=== PATIENT | male | born 1945 | race Caucasian/White ===

== ENCOUNTER 2019-01-16 16:37 | Emergency (ER) | payer MEDICARE, OTHER ==
--- NOTE | 2019-01-16 16:52 | ED Physician Documentation ---
PD HPI LOWER EXT INJURY - Stated complaint Stated Complaint: R LEG PX - Chief complaint Chief Complaint: Trauma Ext - History obtained from History obtained from: Patient - History of Present Illness PD HPI LOW EXT INJURY LOCATION: Right (He is a month out from the back surgery. He has had 1 week of right calf pain and swelling without chest pain or trouble breathing. No history of DVT.) Review of Systems Constitutional: reports: Reviewed and negative Cardiac: reports: Pedal edema, Calf pain. denies: Chest pain / pressure, Palpitations Respiratory: denies: Dyspnea, Cough GI: denies: Abdominal Pain PD PAST MEDICAL HISTORY - Past Surgical History Past Surgical History: Yes Ortho: Spine surgery - Allergies Allergies/Adverse Reactions: Allergies Allergy/AdvReac Type Severity Reaction Status Date / Time Opioids - Morphine Analogues Allergy Itching Verified 01/16/19 16:42 Sulfa (Sulfonamide Allergy Unknown Verified 01/16/19 16:42 Antibiotics) - Social History Smoking Status: Current every day smoker PD ED PE NORMAL - Vitals Vital signs reviewed: Yes - General General: Alert and oriented X 3, No acute distress - Extremities Extremities: Other (Right calf is tender without discoloration. Mild asymmetric pitting edema. No tenderness above the knee. Positive Homans sign.) - Psych Psych: Normal mood, Normal affect Results - Vitals Vitals: Vital Signs - 24 hr 01/16/19 01/16/19 01/16/19 16:40 16:41 17:57 Heart Rate 89 89 88 Respiratory 18 18 18 Rate Blood Pressure 172/60 H 172/60 H 168/62 H O2 Saturation 97 97 98 Oxygen O2 Source Room air - Rads (name of study) RLE DVT sono Radiology: Prelim report reviewed (neg for DVT) Departure - Departure Disposition: 01 Home, Self Care Clinical Impression: Right leg swelling Condition: Good Record reviewed to determine appropriate education?: Yes Instructions: ED Edema Legs Bilateral Comments: Eat a low-salt diet, keep the your legs elevated but is okay to walk and you should. Follow-up with your doctor in a week. Your blood pressure was elevated today on check into the emergency department. This does not mean that you have hypertension, it is a common phenomenon to come to the emergency department and have elevated blood pressure. I recommend that you see your primary care physician within the week to have it rechecked when you are feeling better. Discharge Date/Time: 01/16/19 17:57
[2019-01-16 17:59] VITALS: BP 168/62
--- NOTE | 2019-01-16 18:26 | Ultrasound Report ---
Reason: RLE swelling Procedure Date: 01/16/2019 Accession Number: [id number] / [id number] Procedure: US - Duplex Ext Veins Right CPT Code: FULL RESULT: EXAM: RIGHT LOWER EXTREMITY VENOUS ULTRASOUND EXAM DATE: 01/16/2019 05:16 PM. CLINICAL HISTORY: Right lower extremity swelling. COMPARISON: None. TECHNIQUE: Real-time sonographic vascular imaging was performed by the graphics editor through the lower extremity utilizing both color-flow and Doppler spectral analysis. Multiple food service representative static images were saved for review. FINDINGS: Common Femoral Vein (CFV): Normal. CFV-GSV Junction: Normal. Profunda Femoral Vein (PFV): Normal. Femoral Vein (FV) Prox: Normal. Femoral Vein (FV) Mid: Normal. Femoral Vein (FV) Dist: Normal. Popliteal Vein: Normal. Posterior Tibial Veins: Normal. Peroneal Veins: Normal. IMPRESSION: No evidence for deep venous thrombosis. RADIA
== END 2019-01-16 17:57 | disposition home or self-care (01) ==
LOC: ED 16:37
DX: M79.661 Pain in right lower leg (principal); R60.0 Localized edema; R03.0 Elevated blood-pressure reading, without diagnosis of hypertension; F17.200 Nicotine dependence, unspecified, uncomplicated
CPT/HCPCS: 99283

== ENCOUNTER 2020-05-15 04:30 | Outpatient (CLI) | payer MEDICARE, OTHER | END 2020-05-15 04:31 | disposition critical access hospital (66) | LOC: EMS 04:30 | PROVIDERS: ATTEND Surgery | DX: R06.02 Shortness of breath (principal); R60.0 Localized edema | CPT/HCPCS: A0425; A0427 ==

== ENCOUNTER 2020-05-15 04:45 | Inpatient (IN) | payer MEDICARE, OTHER ==
--- NOTE | 2020-05-15 04:47 | ED Physician Documentation ---
PD HPI DYSPNEA - Stated complaint Stated Complaint: SOA - History obtained from History obtained from: Patient, EMS - History of Present Illness Timing - onset: How many days ago (at least 5 days of steadily progressive dyspnea, wheezing, and work of breathing. Denies cough but states has had sinus/nasal drainage. No fever. Has had bilateral lower leg edema the past couple of weeks.) Timing - onset during: Rest (now dyspnea even at rest the past couple days, states has spent nights standing at counter, as unable to breath with lying or reclined.), Light activity (initially with activity and lying down) Timing - duration: Days (5) Timing - details: Gradual onset, Still present Inciting event(s): No: Out of meds Worsened by: Exertion, Laying flat Associated symptoms: Wheezing, Chest pain / discomfort (tightness), Bilateral edema. No: Fever, Cough Similar symptoms before: No diagnosis (has Dx of emphysema but not had dyspnea like this previously. Has Albuterol MDI at home to use PRN. Using regularly the past 4-5 days with minimal improvement. Has noted bilateral leg edema as well.) Recently seen: Not recently seen Review of Systems Constitutional: denies: Fever, Chills Nose: reports: Congestion, Sinus pressure / pain (states some thicker sinus/nasal discharge just the past couple of days.). denies: Rhinorrhea / runny nose Throat: denies: Sore throat Cardiac: reports: Chest pain / pressure, Pedal edema. denies: Palpitations, Calf pain Respiratory: reports: Dyspnea, Wheezing (progressively worse - usually MDI just PRN for meds, but has been using it regularly the past 5 days with brief improvement.). denies: Cough GI: denies: Abdominal Pain, Nausea, Vomiting, Diarrhea, Bloody / black stool (he denies dark or bloody stools nor diarrhea) : denies: Dysuria Musculoskeletal: reports: Extremity swelling. denies: Neck pain, Back pain Neurologic: reports: Generalized weakness. denies: Focal weakness, Numbness, Near syncope PD PAST MEDICAL HISTORY - Past Medical History Cardiovascular: Hypertension Respiratory: COPD Endocrine/Autoimmune: Type 2 diabetes GI: GERD - Past Surgical History Past Surgical History: Yes Ortho: Spine surgery - Allergies Allergies/Adverse Reactions: Allergies Allergy/AdvReac Type Severity Reaction Status Date / Time Opioids - Morphine Analogues Allergy Itching Verified 01/16/19 16:42 Sulfa (Sulfonamide Allergy Unknown Verified 01/16/19 16:42 Antibiotics) - Social History Does the pt smoke?: Yes Smoking Status: Current every day smoker Does the pt drink ETOH?: No Does the pt have substance abuse?: No - Immunizations Immunizations are current?: Yes - POLST Patient has POLST: No PD ED PE NORMAL - Vitals Vital signs reviewed: Yes - General General: Alert and oriented X 3, Well developed/nourished, Other (.) - HEENT HEENT: Moist mucous membranes, Pharynx benign - Neck Neck: Supple, no meningeal sign, No adenopathy - Cardiac Cardiac: No: RRR (slightly irregular and tachy about 115-120 but does not appear fib. Looks sinus tach with PACs. ) - Respiratory Respiratory: No: Clear bilaterally (diffuse exp wheezing. Maybe faint crackles at bases. No coarse sounds. ) - Abdomen Abdomen: Soft, Non tender - Male Male : Deferred - Rectal Rectal: Deferred - Derm Derm: Warm and dry. No: Normal color (mild pale) - Extremities Extremities: No deformity, No calf tenderness / cord, Other (2+ edema in both ankles and lower lower legs. ) - Neuro Neuro: Alert and oriented X 3, No motor deficit, Normal speech Results - Vitals Vitals: Vital Signs - 24 hr 05/15/20 05/15/20 05/15/20 04:50 05:03 05:19 Temperature 36.9 C Heart Rate 116 H 104 H 104 H Respiratory 37 H 24 32 H Rate Blood Pressure 151/83 H O2 Saturation 96 05/15/20 05/15/20 05/15/20 05:56 06:00 06:25 Temperature 36.9 C 36.9 C Heart Rate 109 H 104 H 101 H Respiratory 30 H 34 H 32 H Rate Blood Pressure 124/72 98/74 O2 Saturation 100 97 Oxygen O2 Source Nasal cannula - EKG (time done) 04:54 Rate: Rate (enter#) (117) Rhythm: Sinus tachycardia (I believe it looks like sinus tachycardia with PACs. There are some unusually placed T waves perhaps. I do not feel it looks like flutter) - Labs Labs: Laboratory Tests 05/15/20 05/15/20 05/15/20 05:20 05:20 05:20 WBC 16.6 H RBC 2.43 L Hgb 6.3 L* Hct 20.9 L MCV 86.0 MCH 25.9 L MCHC 30.1 L RDW 15.6 H Plt Count 377 MPV 10.7 Neut # (Auto) 13.5 H Lymph # (Auto) 1.3 L [place] # (Auto) 1.5 H Eos # (Auto) 0.1 Baso # (Auto) 0.1 Absolute Nucleated RBC 0.00 Nucleated RBC % 0.0 Manual Slide Review Indicated Platelet Estimate NORMAL (130-450,000) Platelet Morphology NORMAL APPEARANCE RBC Morph Micro Appear 1+ ANISOCYTOSIS Sodium 132 L Potassium 4.6 Chloride 97 L Carbon Dioxide 24 Anion Gap 11.0 BUN 35 H Creatinine 1.8 H Estimated GFR (MDRD) 37 L Glucose 147 H Calcium 8.6 Magnesium 2.2 Iron TIBC % Saturation Transferrin Total Bilirubin 0.7 AST 30 ALT 24 Alkaline Phosphatase 83 Troponin I High Sens 49.0 H* B-Natriuretic Peptide Total Protein 7.4 Albumin 3.6 Globulin 3.8 Albumin/Globulin Ratio 0.9 L Lipase 24 Blood Type Recheck Crossmatch IS Only 05/15/20 05/15/20 05/15/20 05:20 05:20 05:20 WBC RBC Hgb Hct MCV MCH MCHC RDW Plt Count MPV Neut # (Auto) Lymph # (Auto) [place] # (Auto) Eos # (Auto) Baso # (Auto) Absolute Nucleated RBC Nucleated RBC % Manual Slide Review Platelet Estimate Platelet Morphology RBC Morph Micro Appear Sodium Potassium Chloride Carbon Dioxide Anion Gap BUN Creatinine Estimated GFR (MDRD) Glucose Calcium Magnesium Iron 8 L TIBC 442 % Saturation 2 L Transferrin 316 Total Bilirubin AST ALT Alkaline Phosphatase Troponin I High Sens B-Natriuretic Peptide 299 H Total Protein Albumin Globulin Albumin/Globulin Ratio Lipase Blood Type Recheck A POSITIVE Crossmatch IS Only 05/15/20 06:11 WBC RBC Hgb Hct MCV MCH MCHC RDW Plt Count MPV Neut # (Auto) Lymph # (Auto) [place] # (Auto) Eos # (Auto) Baso # (Auto) Absolute Nucleated RBC Nucleated RBC % Manual Slide Review Platelet Estimate Platelet Morphology RBC Morph Micro Appear Sodium Potassium Chloride Carbon Dioxide Anion Gap BUN Creatinine Estimated GFR (MDRD) Glucose Calcium Magnesium Iron TIBC % Saturation Transferrin Total Bilirubin AST ALT Alkaline Phosphatase Troponin I High Sens B-Natriuretic Peptide Total Protein Albumin Globulin Albumin/Globulin Ratio Lipase Blood Type Recheck Crossmatch IS Only See Detail - Rads (name of study) chest xray Radiology: Prelim report reviewed (subtle opacification right lower lung favoring early pneumonia. No CHF appearance. ), See rad report PD MEDICAL DECISION MAKING - ED course Complexity details: considered differential (Seems to be a mixed picture of predominantly COPD with wheezing and difficulty breathing. He is not hypoxic. However he does have leg edema and orthopnea.), d/w patient ED course: I think largely COPD potential infectious process and will treat for pneumonia. Repeating nebulizers. He is not hypoxic. He is having considerable work of breathing that is easing up after nebulizers. He does not appear to be tiring at this time. There is leg edema as well so he was given a Lasix IV dose 2. There is also considerable anemia without any note of blood or melena in his stool. He could benefit with blood transfusion given his hemoglobin count at 6.3. I talked with the hospitalist he will come see the patient in and have him in the hospital for further care Departure - Departure Disposition: 66 [facility] DC/Xfer Clinical Impression: Acute exacerbation of COPD with asthma, Leg edema Dyspnea Qualifiers: Dyspnea type: shortness of breath Qualified Code(s): R06.02 - Shortness of breath Anemia Qualifiers: Anemia type: unspecified type Qualified Code(s): D64.9 - Anemia, unspecified Pneumonia Qualifiers: Pneumonia type: due to unspecified organism Laterality: right Lung location: lower lobe of lung Qualified Code(s): J18.9 - Pneumonia, unspecified organism Condition: Stable Record reviewed to determine appropriate education?: Yes
[2020-05-15] MEDS ORDERED: LORazepam 2 MG/ML VIAL IVP STA (04:54)
[2020-05-15] MEDS ORDERED: IPRATROPIUM/ALBUTEROL 3 ML NEB INH STA ×2 (04:54→05:43)
[2020-05-15] MEDS ORDERED: FUROSEMIDE 40 MG/4 ML VIAL IVP STA (04:54)
[2020-05-15] MEDS ORDERED: NITROGLYCERIN SL 0.4 MG TABLET SL STA (04:55)
[2020-05-15] MEDS ORDERED: ALBUTEROL NEB 2.5 MG/3 ML INH STA ×2 (05:15→06:33)
[2020-05-15 05:29] LABS: BASOPHILS # (AUTO) 0.1 10^3/uL (0.0-0.1); BASOPHILS % (AUTO) 0.3 %; EOSINOPHILS # (AUTO) 0.1 10^3/uL (0.0-0.7); EOSINOPHILS % (AUTO) 0.5 %; LYMPHOCYTES # (AUTO) 1.3 10^3/uL (1.5-3.5); LYMPHOCYTES % (AUTO) 8.1 %; MEAN CORPUSCULAR HEMOGLOBIN 25.9 pg (27.0-31.0); MEAN CORPUSCULAR HGB CONC 30.1 g/dL (32.0-36.0); MEAN PLATELET VOLUME 10.7 fL (7.4-11.4); MONOCYTES # (AUTO) 1.5 10^3/uL (0.0-1.0); MONOCYTES % (AUTO) 9.3 %; NEUTROPHILS # (AUTO) 13.5 10^3/uL (1.5-6.6); NEUTROPHILS % (AUTO) 81.1 %; PLT - PLATELET COUNT 377 10^3/uL (130-450); RED BLOOD COUNT 2.43 10^6/uL (4.70-6.10); RED CELL DISTRIBUTION WIDTH 15.6 % (12.0-15.0); WHITE BLOOD COUNT 16.6 x10^3/uL (4.8-10.8)
[2020-05-15 05:40] LABS: ALBUMIN 3.6 g/dL (3.2-5.5); ALBUMIN/GLOBULIN RATIO 0.9 (1.0-2.2); BILIRUBIN,TOTAL 0.7 mg/dL (0.2-1.0); CALCIUM 8.6 mg/dL (8.5-10.3); CREATININE 1.8 mg/dL (0.6-1.2); MAGNESIUM 2.2 mg/dL (1.7-2.8); TOTAL PROTEIN 7.4 g/dL (6.7-8.2)
[2020-05-15 05:41] LABS: HGB - HEMOGLOBIN 6.3 g/dL (14.0-18.0)
[2020-05-15] MEDS ORDERED: MAGNESIUM SULFATE 2 GRAM 2 GM/50 ML BAG IV ONE (05:43)
[2020-05-15] MEDS ORDERED: cefTRIAXone 1 GM VIAL IVP STA (05:44)
[2020-05-15 05:53] LABS: PLATELET MORPHOLOGY NORMAL APPEARANCE (NORMAL)
[2020-05-15 05:54] LABS: PLATELET ESTIMATE, MANUAL NORMAL (130-450,000) (NORMAL)
[2020-05-15] MEDS ORDERED: AZITHROMYCIN INJ 500 MG in SODIUM CHLORIDE 0.9% 250 ML IV STA (06:01)
[2020-05-15 06:08] LABS: % IRON SATURATION 2 % (20-50); IRON 8 ug/dL (45-182); TOTAL IRON BINDING CAPACITY 442 ug/dL (250-450); TRANSFERRIN 316 mg/dL (180-329)
[2020-05-15] MEDS ORDERED: ONDANSETRON 4 MG/2 ML VIAL IVP PRN (06:17)
[2020-05-15] MEDS ORDERED: ACETAMINOPHEN 325 MG TABLET PO PRN (06:17)
[2020-05-15 06:36] LABS: INR 1.3 (0.8-1.2); PT - PROTHROMBIN TIME 15.1 secs (9.9-12.6)
[2020-05-15 07:02] LABS: ABG BASE EXCESS -3.5 mmol/L (-2.0-3.0); ABG OXYGEN SATURATION 91 % (94-98); ABG PCO2 42 mmHg (34-45); ABG PH 7.34 (7.35-7.45); ABG PO2 68 mmHg (80-100); ABG TCO2 23.3 MMOL/L (21.0-29.0)
[2020-05-15 07:03] LABS: ALLEN TEST POSITIVE
--- NOTE | 2020-05-15 07:39 | XRAY Report ---
PROCEDURE: Chest 1 View X-Ray INDICATIONS: Chest Pain TECHNIQUE: One view of the chest was acquired. COMPARISON: None FINDINGS: Surgical changes and devices: None. Lungs and pleura: No pleural effusions or pneumothorax. Mild patchy opacity in the right lung base. Mediastinum: Mediastinal contours appear normal. Heart size is normal. Bones and chest wall: No suspicious bony lesions. Overlying soft tissues appear unremarkable. IMPRESSION: Right lung base pneumonia. Follow-up PA and lateral chest x-rays or chest CT is recommended to ensure resolution, and to exclude underlying neoplasm. Concordant with preliminary. Reviewed by: Marvin Holden MD on 05/15/2020 7:38 AM PDT Approved by: Marvin Holden MD on 05/15/2020 7:38 AM PDT Station ID: [id number]
[2020-05-15] MEDS: PANTOPRAZOLE 40 MG VIAL IVP SCH (08:03)
[2020-05-15] MEDS: methylPREDNISolone SUCCINATE 40 MG/ML VIAL IVP SCH ×3 (08:03→21:40)
[2020-05-15] MEDS: SODIUM CHLORIDE FLUSH 0.9% 10 ML SYRINGE IVP SCH ×2 (08:03→14:02)
[2020-05-15] MEDS: INSULIN ASPART 300 UNIT/3 ML PEN SUBQ SCH ×4 (08:41→21:06)
[2020-05-15] MEDS: ALBUTEROL 1 PUFF INH PRN ×3 (09:49→17:25)
--- NOTE | 2020-05-15 09:58 | HISTORY & PHYSICAL EXAMINATION ---
Chief Complaint - Chief Complaint Chief Complaint: SOB History of Present Illness - Admitted From Admitted From:: Home via EMS and ED - History Obtained From Records Reviewed: [facility] History obtained from: (primary) Patient (partial) Exam Limitations: Difficulty breathing of patient - History of Present Illness HPI Comment/Other: History primarily obtained from as the patient was on rescue BiPAP for respiratory support. GERARDO is a 74yo male admitted to the ICU for acute respiratory distress with hypoxia. He has a PMH significant for COPD, DM2, and HTN. Approximately 5-6 days ago the patient began to experience increased SOB and difficulty breathing with normal daily activities. As his symptoms worsened, he eventually was SOB at rest and had to sleep sitting up in a chair. He had used his home PRN inhaler of albuterol and a nebulizer (type unknown) for his symptoms with little relief. He denies cough, dizziness, syncope, chest pain or chest palpitations. His explained that since his back surgery last summer his mobility has steadily declined and his frequency of SOB has increased. She also noted that within the last two months he has stopped taking his medications for his DM and HTN. Home oxygen was ordered for the patient however they are still awaiting its arrival. PE significant for expiratory wheezes with crepitant crackles all throughout lung killian, tachypnea, BLE +3 pitting edema, and tachycardia. While in the ED his RR was in the 30s requiring him to be placed on rescue BiPAP. There is a discrepancy between the patient's wishes and his DPOA (his ), will follow the patient's wishes and make him DNR and follow up with an advanced care plan. History - Past Medical History Cardiovascular: reports: Hypertension Respiratory: reports: COPD Neuro: reports: None Endocrine/Autoimmune: reports: Type 2 diabetes GI: reports: GERD : reports: Other (Both the and patient indicated a previous issue with his kidneys last summer (2018) which occured post operatively but neither could define what.) HEENT: reports: Other (Uses dentures) Psych: reports: None Musculoskeletal: reports: Chronic back pain (Back surgery in summer 2018) Other Past Medical History: oxygen to be set up: explained that home O2 had been ordered, awaiting delivery. - Past Surgical History Ortho: reports: Shoulder arthroplasty (Unknown year), Spine surgery (November 2018 then again in March 2019 to repair loose hard palm. ) - Family & Social History Family History: Mother: , Father: Family History Comment/Other: Mother recently passed at the age of 101 from general old age causes. Father passed at the age of 55 from esophageal cancer. The patient also has 4 brothers, he is the middle child. Both younger brothers have passed from heart attack and cancer. Living arrangement: At home Living Situation: With spouse/s.o. Social History Notes: The patient is retired [employer], has been living on [address] [facility] with his for 18years now, no other family lives close. He has one son who lives in [place] and two daughters who live in [place]. He is a smoker, unknown daily amount but has been smoking since the age of 13. Denies alcohol consumption or other recreational drugs. - Substance History Use: Uses substance without health or social issues: Tobacco Dependence: Experiences withdrawal or developed tolerances: Tobacco Dependence Issues: Other (respiratory issues) Tobacco Details: Cigarettes - POLST Patient has POLST: No POLST Status: DNR Meds/Allgy - Home Medications Home Medications: Ambulatory Orders Medication Instructions Recorded Confirmed Albuterol Sulfate [Proair Hfa 2 puffs INH Q4H PRN 05/15/20 Inhaler] Aspirin [Aspirin EC] 81 mg PO DAILY 05/15/20 Fluticasone/Salmeterol [Advair Hfa 2 puffs INH BID 05/15/20 115-21 Mcg Inhaler] Loratadine [Claritin] 10 mg PO DAILY 05/15/20 Multivit,Calc,Mins/Folic Acid 1 tab PO DAILY 05/15/20 05/15/20 [One-A-Day Proactive 65 Plus Tb] Omeprazole 20 mg PO DAILY 05/15/20 - Allergies Allergies/Adverse Reactions: Allergies Allergy/AdvReac Type Severity Reaction Status Date / Time Opioids - Morphine Analogues Allergy Itching Verified 01/16/19 16:42 Sulfa (Sulfonamide Allergy Unknown Verified 01/16/19 16:42 Antibiotics) Review of Systems - Constitutional Constitutional: reports: Fatigue, Poor appetite ( states he fatigues easily, and has had decreased appetite for about a week. Over the past year he has lost significant weight since his back surgery but has recently been putting weight back on.) - Ears, Nose & Throat Ears, Nose & Throat: reports: Dentures - Cardiovascular Cariovascular: reports: Edema, Exertional dyspnea, Decr. exercise tolerance, Orthopnea - Respiratory Respiratory: reports: Wheezing, Orthopnea, SOB at rest ( reports patient having to sleep sitting up or leaning over the counter), SOB with exertion - Gastrointestinal Gastrointestinal: reports: Constipation, Poor appetite - Genitourinary Genitourinary: reports: Urgency - Musculoskeletal Musculoskeletal: reports: Back pain (Surgery in summer 2018), Joint pain (Reported in bilateral shoulders, R has been operated on (unknown year), left shoulder pain is new.) - Integumentary Integumentary: reports: Rash (Reports of rash with itching on R arm) - All Other Systems All Other Systems: reports: Reviewed and negative Prior Level of Functionality: At home patient uses a cane and walker to ambulate around the house, recently he has been unable to ambulate due to difficulty breathing. does all the cooking, cleaning, and other chores. The patient continues to pay the bills (online). After his back surgery in summer 2018 the performed all of his ADLs for him, including bathing and toileting. She acknowledges that she is not strong enough to do these tasks for him, but also states she thinks he will be reluctant to go to a rehab facility. Exam - Vital Signs Reviewed Vital Signs: Yes Vital Signs: Vital Signs x48h Temp Pulse Pulse Resp BP BP Pulse Ox 05/15/20 09:52 104 H 20 05/15/20 09:00 104 H 21 149/57 H 100 05/15/20 08:00 36.7 C 104 H 26 H 129/51 L 98 05/15/20 07:39 106 H 22 141/63 H 100 05/15/20 07:37 112 H 05/15/20 06:25 36.9 C 101 H 32 H 98/74 97 05/15/20 06:00 104 H 34 H 05/15/20 05:56 36.9 C 109 H 30 H 124/72 100 05/15/20 05:19 104 H 32 H 05/15/20 05:03 104 H 24 05/15/20 04:50 36.9 C 116 H 37 H 151/83 H 96 - Physical Exam General Appearance: positive: Moderate distress (Observed on BiPAP, remains tachypnic, appearingly distressed.) Eyes Bilateral: positive: Normal inspection ENT: positive: ENT inspection nml, Dry mucous membranes (presumably from Bipap) Neck: positive: Nml inspection Respiratory: positive: Wheezes, Other (Expiratory wheezes and crepitant lung sounds heard in all lung killian. Pt in moderate respiratory distress.) Cardiovascular: positive: Tachycardia, Other (heart sound barely audible, distant.) Peripheral Pulses: positive: 2+ Abdomen: positive: Non-tender, Other (BS hyperactive) Back: positive: Nml inspection Skin: positive: Pallor, Other (poor turgor) Extremities: positive: Other (+2-3 pitting edema from mid-thigh distally in BLE) Conclusion/Plan - Problem List (1) Acute respiratory failure Conclusion/Plan: DDx: COPD Exacerbation Pulmonary Hypertension with cor pulmonalae Congestive heart failure COVID At this time it is suspected that the patient's respiratory distress is primarily COPD exacerbation, however due to his progressive BLE pitting edema, elevated Troponin and crepitant lung sounds he may have experienced pulmonary hypertension resulting in cor pulmonalae or undiagnosed CHF. At this time we cannot rule out either as a diagnosis. He requires respiratory support via BiPAP to maintain his oxygenation. ABG resulted in pH of 7.34 and paO2 of 68. Echo service not available until Saturday. Plan: -BiPAP 10/5 35% fio2, maintain O2 sats >92% -Repeat troponin 2hrs after initial draw -Send COVID swab -Perform echo once service is available. -no fluid resuscitation -no or conservative diuretic -Monitor vitals qhrly (2) COPD exacerbation Conclusion/Plan: The patient has a previous diagnosis of COPD, most likely due to his long history of smoking. Upon physical exam there were obvious and distinct expiratory wheezes and crepitant sound throughout all of his lung killian. He reports to have used his home Albuterol inhaler as well as his nebulizer without much relief from his SOB symptoms. He continues to be tachypnic and requires respiratory support. Plan: -Bipap 10/5 @35% FiO2, titrating as necessary for O2 sats >92% -Abluterol 2puffs inhaled, q4hr PRN for wheezing -Methylprednisone 40mg IVP TID -Continue to monitor vitals hourly (3) Pneumonia Conclusion/Plan: CXR performed in ED demonstrates opacities in R lung that are indicative of PNA. WBC count elevated to 16 indicating an infection. reports previous hospitalization treatment of PNA in October 2018 while visiting in [place]. The patient has also been intubated twice in the last year (2 back surgeries in summer). All of this indicates a risk for psuedomonas and a change in his antibiotic regimen (per up-to-date). Plan: -Azithromycin 500mg IV Q24 hr x 2 doses -Cefipime 1gm IV q8hr -Obtain and send two sets of blood cultures -Obtain and send respiratory specimen -Monitor vitals hourly -Repeat chest x-ray tomorrow morning -Repeat CBC tomorrow morning Qualifiers: Pneumonia type: due to unspecified organism Laterality: right Lung location: lower lobe of lung Qualified Code(s): J18.9 - Pneumonia, unspecified organism (4) Non compliance w medication regimen Conclusion/Plan: Reported by that he had been taking lisinopril (unknown dose) and metformin (unknown dose) to manage his HTN and DM2 but had stopped these medications two months ago thinking it was contributing to his back pain. It is reported that this change in regimen was consulted with the PCP. Plan: -Monitor for hyperglycemia and HTN -Encourage medication compliance upon discharge. (5) Anemia Conclusion/Plan: Pt is generally pale, admitting hgb is 6.3 and Iron level was 8. Low hgb and iron may be contributing to the patient's respiratory distress. Due to his pmh of GERD there is a chance his low hgb could be from a GI bleed, will check stool to rule out. Plan: -Transfuse 1 UPRBCs -Repeat CBC within 4 hrs of transfusion -Collect stool sample for guaiac testing Qualifiers: Anemia type: unspecified type Qualified Code(s): D64.9 - Anemia, unspecified (6) Leg edema Conclusion/Plan: Reported from that patient occasionally gets edema in his legs and takes a diuretic PRN but could not recall the medication. Upon PE he had +2-3 pitting edema beginning just above his knees, extending down to his feet where it is solid +3. Pt is still producing urine. Pt has not been eating or drinking for a few days due to fatigue and SOB. Unknown cause of edema, possibly undiagnosed cardiac issue. Unable to perform echo and assess cardiac function at this time due to service being not available. Bun 35, Cr 1.8. BP varying, pt remaining tachycardic. Attempt nursing measures first to treat leg edema, if not improved will move on to pharmaceutical. Plan: -Elevate BLE on pillows -Bilateral KINSEY hose (7) Diabetes mellitus Conclusion/Plan: Prior diagnosis of DM2. Was previously managed by Metformin (unknown dose), however pt has not been taking this medication for 2 months. Most recent BG 147. Pt is not demonstrating any s/s of hyper/hypoglycemia at this time. Plan: -Monitor BG AC/HS -Provide sliding scale insulin per protocol PRN Qualifiers: Diabetes mellitus type: type 2 Diabetes mellitus exterminator helper termite insulin use: without group home use Diabetes mellitus complication status: without complication Qualified Code(s): E11.9 - Type 2 diabetes mellitus without complications (8) Hypertension Conclusion/Plan: Previous diagnosis of hypertension. Reported that patient has not been taking his lisinopril (unknown dose) for 2 months. BP has been widely ranging since admission but has not been >160 SBP. The patient has been placed in the ICU for closer monitoring. Plan: -Monitor BP hourly -Will add PRN BP meds if SBP sustained >160 Qualifiers: Hypertension type: essential hypertension Qualified Code(s): I10 - Essential (primary) hypertension (9) Mobility impaired Conclusion/Plan: reports the patient utilizes a cane and walker at home to assist with mobility. Since his back surgery last summer his mobility has progressively declined. Post-op last summer the was the sole box office attendant performing all ADL's for the patient. She acknowledges that she is not strong enough to perform those activities for him but also feels he will be resistant to rehab placement after discharge. This is a discussion that will need to be had with the patient. His level of mobility needs to be officially addressed. Plan: -PT/OT consult -Discuss discharge options with patient (10) Advance care planning Conclusion/Plan: There is a discrepancy between the patient's wishes and his DPOA (his ). An advanced care plan meeting needs to be had with the patient and a POLST form filled out. Plan: -Once pt is more alert and non-distressed from SOB question patient about wishes. - Lab Results Lab results reviewed: Yes Fish Bones: 05/15/20 05:20 05/15/20 05:20 - Diagnostic Imaging Results Diagnostic Imaging Results: positive: See rad report - EKG Results EKG Interpreted Independently: No Core Measures - Anticipated LOS I expect patient to be DC'd or transferred within 96 hours.: Yes - DVT/VTE - Prophylaxis VTE/DVT Device ordered at admit?: Yes VTE/DVT Prophylaxis med ordered at admit?: No - Stroke - Rehab Assessment Rehab services assessment to be ordered?: No - AMI - Statin at Admit Aspirin Prescribed on Admit: No
[2020-05-15 10:11] LABS: HEMOGLOBIN A1c% 6.6 % (4.27-6.07)
--- NOTE | 2020-05-15 10:43 | PHARMACY PROGRESS NOTE ---
- Best Possible Medication History Admit Date and Time: 05/15/20 0617 Processed by: Pharmacy Medication History completed: Yes Patient Interview: Pt unable to participate Secondary Source(s): Spouse/Significant other, Pharmacy records, Insurance re cords As the person ultimately responsible for medication therapy, providers are able to order a medication from an existing home medication list in [facility] via the "Reconcile Routine" prior to Confirmation of that medication by customer support assistant. Such practice is discouraged except when the physician, in their clinical judgment, deems that a medical need exists for a medication without regard to pr evious use.
[2020-05-15] MEDS: CEFEPIME 1 GM in SODIUM CHLORIDE 0.9% MINIBAG 100 ML IV SCH ×2 (11:54→17:50)
[2020-05-15 15:34] LABS: HGB - HEMOGLOBIN 6.8 g/dL (14.0-18.0)
[2020-05-15] MEDS ORDERED: FERRIC GLUCONATE 125 MG in SODIUM CHLORIDE 0.9% 100ML 100 ML IV ONE (16:41)
[2020-05-15] MEDS: SODIUM CHLORIDE FLUSH 0.9% 10 ML SYRINGE IVP PRN (21:41)
[2020-05-16] MEDS: SODIUM CHLORIDE FLUSH 0.9% 10 ML SYRINGE IVP SCH ×4 (00:19→23:50)
[2020-05-16] MEDS: CEFEPIME 1 GM in SODIUM CHLORIDE 0.9% MINIBAG 100 ML IV SCH ×2 (01:44→10:14)
[2020-05-16] MEDS: SODIUM CHLORIDE FLUSH 0.9% 10 ML SYRINGE IVP PRN ×2 (02:25→21:51)
[2020-05-16] MEDS: ALBUTEROL 1 PUFF INH PRN ×2 (03:18→07:00)
[2020-05-16] MEDS ORDERED: cefTRIAXone 2 GM in SODIUM CHLORIDE 0.9% MINIBAG 100 ML IV SCH (05:00)
[2020-05-16 05:02] LABS: BASOPHILS % (AUTO) 0.1 %; HGB - HEMOGLOBIN 7.5 g/dL (14.0-18.0); LYMPHOCYTES # (AUTO) 0.7 10^3/uL (1.5-3.5); LYMPHOCYTES % (AUTO) 4.6 %; MEAN CORPUSCULAR HEMOGLOBIN 26.4 pg (27.0-31.0); MEAN CORPUSCULAR HGB CONC 30.4 g/dL (32.0-36.0); MEAN PLATELET VOLUME 10.8 fL (7.4-11.4); MONOCYTES # (AUTO) 1.3 10^3/uL (0.0-1.0); MONOCYTES % (AUTO) 8.2 %; NEUTROPHILS # (AUTO) 13.9 10^3/uL (1.5-6.6); NEUTROPHILS % (AUTO) 86.1 %; PLT - PLATELET COUNT 329 10^3/uL (130-450); RED BLOOD COUNT 2.84 10^6/uL (4.70-6.10); RED CELL DISTRIBUTION WIDTH 15.6 % (12.0-15.0); WHITE BLOOD COUNT 16.2 x10^3/uL (4.8-10.8)
[2020-05-16 05:19] LABS: CALCIUM 8.8 mg/dL (8.5-10.3); CREATININE 1.8 mg/dL (0.6-1.2); MAGNESIUM 2.7 mg/dL (1.7-2.8); PHOSPHORUS 5.1 mg/dL (2.5-4.6)
[2020-05-16] MEDS ORDERED: AZITHROMYCIN INJ 500 MG in SODIUM CHLORIDE 0.9% 250 ML IV SCH (06:00)
[2020-05-16] MEDS: PANTOPRAZOLE 40 MG VIAL IVP SCH (06:27)
[2020-05-16] MEDS: methylPREDNISolone SUCCINATE 40 MG/ML VIAL IVP SCH ×3 (06:32→21:51)
[2020-05-16] MEDS ORDERED: ALBUTEROL NEB 2.5 MG/3 ML INH PRN (07:23)
[2020-05-16] MEDS: INSULIN ASPART 300 UNIT/3 ML PEN SUBQ SCH ×4 (08:11→20:33)
[2020-05-16] MEDS: polyethylene glycoL 3350 17 GM PACKET PO SCH (08:24)
--- NOTE | 2020-05-16 09:15 | XRAY Report ---
PROCEDURE: Chest 1 View X-Ray INDICATIONS: Worsening dyspnea. Hypoxia. TECHNIQUE: One view of the chest was acquired. COMPARISON: 05/06/2020 FINDINGS: Surgical changes and devices: None. Lungs and pleura: No pleural effusions or pneumothorax. Subtle opacity noted in the right lower lobe could represent atelectasis or pneumonia. Mediastinum: Mediastinal contours appear normal. Heart size is normal. Bones and chest wall: No suspicious bony lesions. Overlying soft tissues appear unremarkable. IMPRESSION: Subtle opacity in the right lower lobe concerning for atelectasis versus pneumonia. Reviewed by: Lola Aguilar MD, PhD on 05/16/2020 9:14 AM PDT Approved by: Lola Aguilar MD, PhD on 05/16/2020 9:14 AM PDT Station ID: [id number]
[2020-05-16] MEDS: IPRATROPIUM/ALBUTEROL 3 ML NEB INH SCH ×4 (09:17→22:14)
--- NOTE | 2020-05-16 10:42 | PROVIDER PROGRESS NOTE ---
Subjective - Prog Note Date Prog Note Date: 05/16/20 Prog Note Time: 10:00 - Subjective Pt reports feeling: Improved Subjective: The patient reports feeling much improved from yesterday despite not getting much sleep over night. He reports feeling as though he can breath easier this morning, however over night was unable to lay back in bed stating feeling as though he "lost his air". During that time the patient had remained on BiPap throughout the night. This morning during assessment the patient was noted to be utilizing NC @4L, was awake, alert, able to converse in full sentences, sitting on the side of the bed, but was still tachypnic. Lung sounds remain wheezey upon expiration with crackles in bases, L>R. Current Medications - Current Medications Current Medications: Active Medications Generic Name Dose Route Start Last Admin Trade Name Freq PRN Reason Stop Dose Admin Acetaminophen 650 mg 05/15/20 06:17 Tylenol PO Q4HR PRN Pain 1 to 4 Albuterol 2.5 mg 05/16/20 07:23 INH RTQ4H PRN Wheezing Albuterol/Ipratropium 3 ml 05/16/20 09:00 05/16/20 09:17 Duoneb INH 3 ml Q4HR BEV Administration Azithromycin 500 mg/ Sodium 250 mls @ 250 mls/hr 05/16/20 06:00 05/16/20 07:26 Chloride IV 05/17/20 06:59 Infused Q24H BEV Infusion Cefepime HCl 1 gm/ Sodium 100 mls @ 200 mls/hr 05/15/20 10:00 05/16/20 10:14 Chloride IV 200 mls/hr Q8H BEV Administration Insulin Aspart 1 - 9 unit 05/15/20 08:00 05/16/20 08:11 Novolog SUBQ Not Given 0800,1200,1700,2100 [facility] Protocol Methylprednisolone 40 mg 05/15/20 07:00 05/16/20 06:32 Solu-Medrol (40mg Vial) IVP 40 mg TID BEV Administration Ondansetron HCl 4 mg 05/15/20 06:17 Zofran Inj IVP Q6HR PRN Nausea / Vomiting Pantoprazole Sodium 40 mg 05/15/20 07:00 05/16/20 06:27 Protonix IVP 40 mg QDAC BEV Administration Polyethylene Glycol 17 gm 05/16/20 09:00 05/16/20 08:24 Miralax PO 17 gm DAILY BEV Administration Sodium Chloride 10 ml 05/15/20 09:00 05/16/20 08:24 Normal Saline Flush 0.9% IVP 10 ml 0100,0900,1700 BEV Administration Sodium Chloride 10 ml 05/15/20 06:17 05/16/20 02:25 Normal Saline Flush 0.9% IVP 10 ml PRN PRN Administration NEEDED PER PROVIDER ORDERS Albuterol Sulfate [Proair Hfa Inhaler] 2 puffs INH Q4H PRN 05/15/20 Aspirin [Aspirin EC] 81 mg PO DAILY 05/15/20 Fluticasone/Salmeterol [Advair Hfa 115-21 Mcg Inhaler] 2 puffs INH BID 05/15/20 Loratadine [Claritin] 10 mg PO DAILY 05/15/20 Multivit,Calc,Mins/Folic Acid [One-A-Day Proactive 65 Plus Tb] 1 tab PO DAILY 05/15/20 Omeprazole 20 mg PO DAILY 05/15/20 Objective - Vital Signs/Intake & Output Reviewed Vital Signs: Yes Vital Signs: Vital Signs Temp Pulse Pulse Resp BP BP Pulse Ox 05/16/20 10:00 101 H 20 129/60 95 05/16/20 09:18 105 H 18 05/16/20 09:00 97 23 138/74 H 100 05/16/20 08:00 37.1 C 98 23 107/90 H 97 05/16/20 07:13 103 H 17 131/71 H 96 05/16/20 07:05 104 H 20 Intake & Output: Intake & Output 05/13/20 05/14/20 05/15/20 05/16/20 23:59 23:59 23:59 23:59 Intake Total 2467 1510 Output Total 1685 1100 Balance 782 410 - Objective General Appearance: positive: No acute distress, Alert Eyes Bilateral: positive: Normal inspection, PERRL ENT: positive: ENT inspection nml, Pharynx nml Respiratory: positive: Wheezes, Other (Expiratory wheezes with crackles in bases bilaterally, L>R) Cardiovascular: positive: No murmur, No gallop Peripheral Pulses: 1+ Dorsalis pedis (R), 1+ Dorsalis pedis (L), 2+ Radial (R), 2+ Radial (L) Abdomen: positive: Non-tender, Other (Reports having a BM this morning, stating is was firm and large.) Back: positive: Nml inspection Skin: positive: Color nml, No rash Extremities: positive: Non-tender, Full ROM Neurologic/Psychiatric: positive: Oriented x3 - Lab Results Fish Bones: 05/16/20 04:41 05/16/20 04:41 Other Labs: Lab Results x24hrs 05/16/20 05/16/20 05/16/20 Range/Units 04:41 04:41 04:41 WBC 16.2 H (4.8-10.8) x10^3/uL RBC 2.84 L (4.70-6.10) 10^6/uL Hgb 7.5 L (14.0-18.0) g/dL Hct 24.7 L (42.0-52.0) % MCV 87.0 (80.0-94.0) fL MCH 26.4 L (27.0-31.0) pg MCHC 30.4 L (32.0-36.0) g/dL RDW 15.6 H (12.0-15.0) % Plt Count 329 (130-450) 10^3/uL MPV 10.8 (7.4-11.4) fL Neut # (Auto) 13.9 H (1.5-6.6) 10^3/uL Lymph # (Auto) 0.7 L (1.5-3.5) 10^3/uL Stoddard # (Auto) 1.3 H (0.0-1.0) 10^3/uL Eos # (Auto) 0.0 (0.0-0.7) 10^3/uL Baso # (Auto) 0.0 (0.0-0.1) 10^3/uL Absolute Nucleated RBC 0.03 x10^3/uL Nucleated RBC % 0.2 /100WBC Sodium 132 L (135-145) mmol/L Potassium 5.2 H (3.5-5.0) mmol/L Chloride 99 L (101-111) mmol/L Carbon Dioxide 24 (21-32) mmol/L Anion Gap 9.0 (6-13) BUN 46 H (6-20) mg/dL Creatinine 1.8 H (0.6-1.2) mg/dL Estimated GFR (MDRD) 37 L (>89) Glucose 179 H (70-100) mg/dL Calcium 8.8 (8.5-10.3) mg/dL Phosphorus 5.1 H (2.5-4.6) mg/dL Magnesium 2.7 (1.7-2.8) mg/dL B-Natriuretic Peptide 521 H (5-100) pg/mL Nasal Screen MRSA (PCR) (NEGATIVE) Coronavirus (PCR) Blood Type Antibody Screen Crossmatch IS Only 05/15/20 05/15/20 05/15/20 Range/Units 15:15 07:20 07:20 WBC (4.8-10.8) x10^3/uL RBC (4.70-6.10) 10^6/uL Hgb 6.8 L* (14.0-18.0) g/dL Hct 22.2 L (42.0-52.0) % MCV (80.0-94.0) fL MCH (27.0-31.0) pg MCHC (32.0-36.0) g/dL RDW (12.0-15.0) % Plt Count (130-450) 10^3/uL MPV (7.4-11.4) fL Neut # (Auto) (1.5-6.6) 10^3/uL Lymph # (Auto) (1.5-3.5) 10^3/uL Stoddard # (Auto) (0.0-1.0) 10^3/uL Eos # (Auto) (0.0-0.7) 10^3/uL Baso # (Auto) (0.0-0.1) 10^3/uL Absolute Nucleated RBC x10^3/uL Nucleated RBC % /100WBC Sodium (135-145) mmol/L Potassium (3.5-5.0) mmol/L Chloride (101-111) mmol/L Carbon Dioxide (21-32) mmol/L Anion Gap (6-13) BUN (6-20) mg/dL Creatinine (0.6-1.2) mg/dL Estimated GFR (MDRD) (>89) Glucose (70-100) mg/dL Calcium (8.5-10.3) mg/dL Phosphorus (2.5-4.6) mg/dL Magnesium (1.7-2.8) mg/dL B-Natriuretic Peptide (5-100) pg/mL Nasal Screen MRSA (PCR) NEGATIVE (NEGATIVE) Coronavirus (PCR) NEGATIVE Blood Type Antibody Screen Crossmatch IS Only 05/15/20 Range/Units 06:11 WBC (4.8-10.8) x10^3/uL RBC (4.70-6.10) 10^6/uL Hgb (14.0-18.0) g/dL Hct (42.0-52.0) % MCV (80.0-94.0) fL MCH (27.0-31.0) pg MCHC (32.0-36.0) g/dL RDW (12.0-15.0) % Plt Count (130-450) 10^3/uL MPV (7.4-11.4) fL Neut # (Auto) (1.5-6.6) 10^3/uL Lymph # (Auto) (1.5-3.5) 10^3/uL Stoddard # (Auto) (0.0-1.0) 10^3/uL Eos # (Auto) (0.0-0.7) 10^3/uL Baso # (Auto) (0.0-0.1) 10^3/uL Absolute Nucleated RBC x10^3/uL Nucleated RBC % /100WBC Sodium (135-145) mmol/L Potassium (3.5-5.0) mmol/L Chloride (101-111) mmol/L Carbon Dioxide (21-32) mmol/L Anion Gap (6-13) BUN (6-20) mg/dL Creatinine (0.6-1.2) mg/dL Estimated GFR (MDRD) (>89) Glucose (70-100) mg/dL Calcium (8.5-10.3) mg/dL Phosphorus (2.5-4.6) mg/dL Magnesium (1.7-2.8) mg/dL B-Natriuretic Peptide (5-100) pg/mL Nasal Screen MRSA (PCR) (NEGATIVE) Coronavirus (PCR) Blood Type A POSITIVE Antibody Screen NEGATIVE Crossmatch IS Only See Detail - Diagnostic Imaging Diagnostic Imaging Results: positive: See rad report Assessment/Plan - Problem List (1) Acute respiratory failure Impression: DDx: COPD Exacerbation Pulmonary Hypertension with cor pulmonalae Congestive heart failure COVID At this time it is suspected that the patient's respiratory distress is primarily COPD exacerbation, however due to his progressive BLE pitting edema, elevated Troponin and crepitant lung sounds he may have experienced pulmonary hypertension resulting in cor pulmonalae or undiagnosed CHF. At this time we cannot rule out either as a diagnosis. He requires respiratory support via BiPAP to maintain his oxygenation. ABG resulted in pH of 7.34 and paO2 of 68. Echo service not available until Saturday. Plan: -BiPAP 10/5 35% fio2, maintain O2 sats >92% -Repeat troponin 2hrs after initial draw -Send COVID swab -Perform echo once service is available. -no fluid resuscitation -none or conservative diuretic -Monitor vitals qhrly Update 05/16: Pts lung sounds continue to be expiratory wheezes bilaterally and throughout, crackles in bilateral bases L>R. Edema moderately improved from yesterday. COVID swab negative. Continues to require supplemental O2 and BiPAP for respiratory support. Troponin levels have remained in 30's, not indicative of cardiac event. Plan: -Continue BiPAP as needed, remove for meals -Utilize NC for oxygen support as needed to remain O2 sats >92% -Monitor vitals q1hr Qualifiers: Respiratory failure complication: unspecified whether with hypoxia or hypercapnia Qualified Code(s): J96.00 - Acute respiratory failure, unspecified whether with hypoxia or hypercapnia (2) COPD exacerbation Impression: The patient has a previous diagnosis of COPD, most likely due to his long history of smoking. Upon physical exam there were obvious and distinct expiratory wheezes and crepitant sound throughout all of his lung killian. He reports to have used his home Albuterol inhaler as well as his nebulizer without much relief from his SOB symptoms. He continues to be tachypnic and requires respiratory support. Plan: -Bipap 10/5 @35% FiO2, titrating as necessary for O2 sats >92% -Abluterol 2puffs inhaled, q4hr PRN for wheezing -Methylprednisone 40mg IVP TID -Continue to monitor vitals hourly Update 05/16 Lung sounds remain wheezy upon expiration with bilateral basal crackles, L>R. He has been using BiPAP throughout the night, however was unable to sleep due to respiratory issues. Continues to be tachypnic. With a negative Covid swab we are able to add nebulizers to his treatment plan. Plan: -Continue BiPAP as needed -Switch to NC for meals -Albuterol 2puffs inhaled q4hr PRN for wheezing -Duoneb 3ml inhaled q4hr -Methylprednisone 40mg IVP TID -Continue to monitor vitals hourly (3) Pneumonia Impression: CXR performed in ED demonstrates opacities in R lung that are indicative of PNA. WBC count elevated to 16 indicating an infection. reports previous hospitalization treatment of PNA in October 2018 while visiting in [place]. The patient has also been intubated twice in the last year (2 back surgeries in summer). All of this indicates a risk for psuedomonas and a change in his antibiotic regimen (per up-to-date). Plan: -Azithromycin 500mg IV Q24 hr x 2 doses -Cefipime 1gm IV q8hr -Obtain and send two sets of blood cultures -Obtain and send respiratory specimen -Monitor vitals hourly -Repeat chest x-ray tomorrow morning -Repeat CBC tomorrow morning Qualifiers: Pneumonia type: due to unspecified organism Laterality: right Lung location: lower lobe of lung Qualified Code(s): J18.9 - Pneumonia, unspecified organism Update 05/16: Blood cultures have not grown anything and sputum culture is benign. Patient has not had a temperature over night and WBC remain elevated at 16. Continue abx regimen. Need for chest CT remains, however CT services are unavailable. Plan: -Continue abx above -Obtain CT of chest when available Qualifiers: Pneumonia type: due to unspecified organism Laterality: right Lung location: lower lobe of lung Qualified Code(s): J18.9 - Pneumonia, unspecified organism (4) Non compliance w medication regimen Impression: Reported by that he had been taking lisinopril (unknown dose) and metformin (unknown dose) to manage his HTN and DM2 but had stopped these medications two months ago thinking it was contributing to his back pain. It is reported that this change in regimen was consulted with the PCP. Plan: -Monitor for hyperglycemia and HTN -Encourage medication compliance upon discharge. Update 05/16 No change in the plan above (5) Anemia Impression: Pt is generally pale, admitting hgb is 6.3 and Iron level was 8. Low hgb and iron may be contributing to the patient's respiratory distress. Due to his pmh of GERD there is a chance his low hgb could be from a GI bleed, will check stool to rule out. Plan: -Transfuse 1 UPRBCs -Repeat CBC within 4 hrs of transfusion -Collect stool sample for guaiac testing Qualifiers: Anemia type: unspecified type Qualified Code(s): D64.9 - Anemia, unspecified Update 05/16: Repeat CBC post 1uPRBC was not markedly improved, received another uPRBCs overnight. This morning H/H 7.5/24.7. He received IV iron over night, switching to PO now that he able to tolerate mask being off long enough to consume food. Guaiac sample still pending. Plan: -Recheck CBC in AM -Guaiac sample pending -Switch from IV ferrous sulfate to PO Qualifiers: Anemia type: unspecified type Qualified Code(s): D64.9 - Anemia, unspecified (6) Leg edema Impression: Reported from that patient occasionally gets edema in his legs and takes a diuretic PRN but could not recall the medication. Upon PE he had +2-3 pitting edema beginning just above his knees, extending down to his feet where it is solid +3. Pt is still producing urine. Pt has not been eating or drinking for a few days due to fatigue and SOB. Unknown cause of edema, possibly undiagnosed cardiac issue. Unable to perform echo and assess cardiac function at this time due to service being not available. Bun 35, Cr 1.8. BP varying, pt remaining tachycardic. Attempt nursing measures first to treat leg edema, if not improved will move on to pharmaceutical. Plan: -Elevate BLE on pillows -Bilateral KINSEY hose Update 05/16: Edema to BLE mildly improved but still present, more of a +2 pitting edema from knees to toes. Continues to void frequently. BUN increased to 46 this morning, Cr remained 1.8. BNP increased to 521. Tachycardia minimal, HR 90-low 100s, BP has remained within normal limits. Plan: Continue to elevate BLE as much as possible. (7) Diabetes mellitus Impression: Prior diagnosis of DM2. Was previously managed by Metformin (unknown dose), however pt has not been taking this medication for 2 months. Most recent BG 147. Pt is not demonstrating any s/s of hyper/hypoglycemia at this time. Plan: -Monitor BG AC/HS -Provide sliding scale insulin per protocol PRN Qualifiers: Diabetes mellitus type: type 2 Diabetes mellitus long term care pharmacist insulin use: without long term care pharmacist use Diabetes mellitus complication status: without complication Qualified Code(s): E11.9 - Type 2 diabetes mellitus without complications Update 05/16: Most recent BG 136, did not require insulin coverage. Over night he required up to 3 units for BG coverage. Continue to monitor BG and administer sliding scale insulin Plan: -Monitor BGAC/HS -Provide sliding scale insulin per protocol PRN Qualifiers: Diabetes mellitus type: type 2 Diabetes mellitus long term care pharmacist insulin use: without long term care pharmacist use Diabetes mellitus complication status: without complication Qualified Code(s): E11.9 - Type 2 diabetes mellitus without complications (8) Hypertension Impression: Previous diagnosis of hypertension. Reported that patient has not been taking his lisinopril (unknown dose) for 2 months. BP has been widely ranging since admission but has not been >160 SBP. The patient has been placed in the ICU for closer monitoring. Plan: -Monitor BP hourly -Will add PRN BP meds if SBP sustained >160 Qualifiers: Hypertension type: essential hypertension Qualified Code(s): I10 - Essentia l (primary) hypertension Update 05/16: BP has remained WNL over night and has not required pharmaceutical intervention. Continue plan above. Qualifiers: Hypertension type: essential hypertension Qualified Code(s): I10 - Essential (primary) hypertension (9) Mobility impaired Impression: reports the patient utilizes a cane and walker at home to assist with mobility. Since his back surgery last summer his mobility has progressively declined. Post-op last summer the was the sole director of campus recreation performing all ADL's for the patient. She acknowledges that she is not strong enough to perform those activities for him but also feels he will be resistant to rehab placement after discharge. This is a discussion that will need to be had with the patient. His level of mobility needs to be officially addressed. Plan: -PT/OT consult -Discuss discharge options with patient Update 05/16: Discussed option of discharge to rehab SNF and the patient was insistant that he not go to a SNF for fear of COVID. He also understands that his medical needs and rehab may be too much of a burden for his to bare. Will consult with social work and discharge planning to determine what his options are. (10) Advance care planning Impression: There is a discrepancy between the patient's wishes and his DPOA (his ). An advanced care plan meeting needs to be had with the patient and a POLST form filled out. Plan: -Once pt is more alert and non-distressed from SOB question patient about wishes. Update 05/16: This morning patient was able to verbalize that he does not want life saving measures performed on him, will continue his DNR status.
[2020-05-16] MEDS ORDERED: ceFAZolin 2 GM in SODIUM CHLORIDE 0.9% 100ML 100 ML IV SCH (16:00)
[2020-05-16] MEDS: ceFAZolin 2 GM in SODIUM CHLORIDE 0.9% 100ML 100 ML IV SCH ×2 (16:29→23:49)
[2020-05-17] MEDS: IPRATROPIUM/ALBUTEROL 3 ML NEB INH SCH ×5 (01:00→20:34)
[2020-05-17 04:52] LABS: BASOPHILS % (AUTO) 0.1 %; HGB - HEMOGLOBIN 7.7 g/dL (14.0-18.0); LYMPHOCYTES # (AUTO) 0.7 10^3/uL (1.5-3.5); LYMPHOCYTES % (AUTO) 4.2 %; MEAN CORPUSCULAR HEMOGLOBIN 26.5 pg (27.0-31.0); MEAN CORPUSCULAR HGB CONC 29.7 g/dL (32.0-36.0); MEAN PLATELET VOLUME 11.2 fL (7.4-11.4); MONOCYTES # (AUTO) 1.1 10^3/uL (0.0-1.0); NEUTROPHILS # (AUTO) 15.8 10^3/uL (1.5-6.6); NEUTROPHILS % (AUTO) 89.1 %; PLT - PLATELET COUNT 341 10^3/uL (130-450); RED BLOOD COUNT 2.91 10^6/uL (4.70-6.10); RED CELL DISTRIBUTION WIDTH 15.9 % (12.0-15.0); WHITE BLOOD COUNT 17.8 x10^3/uL (4.8-10.8)
[2020-05-17 05:04] LABS: CREATININE 1.6 mg/dL (0.6-1.2); MAGNESIUM 2.5 mg/dL (1.7-2.8); PHOSPHORUS 4.8 mg/dL (2.5-4.6)
[2020-05-17] MEDS: methylPREDNISolone SUCCINATE 40 MG/ML VIAL IVP SCH ×3 (06:21→21:30)
[2020-05-17] MEDS: SODIUM CHLORIDE FLUSH 0.9% 10 ML SYRINGE IVP PRN ×2 (06:22→21:30)
[2020-05-17] MEDS: PANTOPRAZOLE 40 MG VIAL IVP SCH (06:22)
[2020-05-17] MEDS: polyethylene glycoL 3350 17 GM PACKET PO SCH (08:24)
[2020-05-17] MEDS: INSULIN ASPART 300 UNIT/3 ML PEN SUBQ SCH ×4 (08:25→21:00)
[2020-05-17] MEDS: ceFAZolin 2 GM in SODIUM CHLORIDE 0.9% 100ML 100 ML IV SCH ×3 (08:25→23:53)
[2020-05-17] MEDS: SODIUM CHLORIDE FLUSH 0.9% 10 ML SYRINGE IVP SCH ×2 (08:25→16:12)
[2020-05-17] MEDS: LORATADINE 10 MG TABLET PO SCH (10:08)
[2020-05-17] MEDS: ASPIRIN EC 81 MG TABLET PO SCH (10:08)
[2020-05-17] MEDS ORDERED: BENZOCAINE/MENTHOL LOZENGE MM PRN (10:17)
[2020-05-17] MEDS: SENNA 8.6 MG TABLET PO SCH (10:30)
[2020-05-17] MEDS: FERROUS GLUCONATE 324 MG TABLET PO SCH (11:45)
--- NOTE | 2020-05-17 12:36 | Discharge Plan ---
Discharge Plan Problem Reviewed?: Yes Disposition: Home, Self Care Condition: Stable Prescriptions: cefUROXime axetiL [Ceftin] 250 mg PO Q12H #8 tablet Ipratropium/Albuterol [Duoneb] 3 ml INH QID #30 neb Ferrous Gluconate [Fergon] 324 mg PO DAILYWM #30 tablet Methylprednisolone [Medrol Dose Pack] 1 each PO .PACKAGEINSTRUCTIONS 6 Days #1 each Diet: Diabetic Activity Restrictions: Activity as Tolerated Shower Restrictions: No Driving Restrictions: No Instruction Topics: Chronic Lung Disease Exercise Plan, Inhaler Metered Dose Dc, Nebulizer Use Health Concerns: You came to the emergency room for severe shortness of breath and we found you to have a pneumonia/bronchitis and a COPD exacerbation. Also you are very anemic and have been started on iron. You are being discharged to finish 4 more days of antibiotics using Ceftin and to take a Medrol Dose-Chi which is a tapering down steroid dose. All new pre scriptions were electronically sent to your [facility] pharmacy in [place]. You should resume using your DuoNeb nebulizers either 3 or 4 times a day. Even if you may not feel a difference, they are helping the lung tissue. You had overnight oxygen testing and test with walking, for checking need for supplemental oxygen, and the settings on your new O2 concentrator should be: 1L at rest, during sleep and with activity. Resume all your other prehospital medications. You would benefit greatly from attending Pulmonary Rehab classes; the referral was sent for you to come to the "[facility]" here for pulmonary rehab. A staff member from the "[facility]" will contact you. Plan of Treatment: As above. Care Goals: Improvement in symptoms and stabilization are the goals. Assessment: Patient understands and is agreeable with the plan. Additional Instructions or Follow Up instructions: If you have new or worsening symptoms, call your PCP for advice or come to the ER. Follow-Up Care: [facility] - Pulmonary No Smoking: If you smoke, Please STOP! Call for help. Follow-up with: Mir Diaz MD [Primary Care Provider] -
--- NOTE | 2020-05-17 12:57 | PROVIDER PROGRESS NOTE ---
Assessment/Plan - Problem List (1) Acute respiratory failure with hypoxia Assessment/Plan: This patient was prescribed oxygen at night then this was changed and he bought his own [employer] oxygen concentrator which just arrived to his house yesterday. He has not been trained on using it but does not want to, as he says he will read the package insert. Will stop BIPAP order and if needed, will use high-flow supplemental O2. Pt can be Dc h out of ICU therefore. Will obtain overnight oximetry tonight, to know what setting he needs at night. On day of discharge, will do oxygen oximetry walking test to know what setting he needs for walking and at rest. RT offered to teach the pt and how to change the settings on new home O2 tank. I told the this at bedside today, and she will bring it in tomorrow. (2) Staphylococcal pneumonia Assessment/Plan: His ceftriaxone and Zithromax were stopped, and Ancef was started yesterday because of identification of methacilllin-sensitive Staph in the sputum culture. Sensitivities are still pending. He will be discharged to take several more days of oral antibiotics. The initial chest x-ray on 05/15/[address] scan to assure that this is not malignancy versus an infiltrate. Will order CT (hopefully CT will be available this evening). (3) Acute exacerbation of COPD with asthma Assessment/Plan: The patient was not using his DuoNeb's but has a nebulizer at home. He was using his MDI. He will be discharged to complete a Medrol Dosepak and encouraged to use his nebulizer/MDI as prescribed. (4) Anemia Qualifiers: Anemia type: iron deficiency Assessment/Plan: Low iron stores found, but stool is guaic neg. Will start oral Iron replacement today. Follow H/H daily, transfuse if <7 or of <8 and has sx. (5) Acute kidney injury superimposed on CKD Assessment/Plan: He has only had lab here at our hospital on this admission, and the creatinine is in the 1.8-1.9 range. Follow BMP daily. (6) Diabetes mellitus Qualifiers: Diabetes mellitus type: type 2 Diabetes mellitus fdc insulin use: without fdc use Diabetes mellitus complication status: without complication Qualified Code(s): E11.9 - Type 2 diabetes mellitus without complications Assessment/Plan: He stopped metformin and his A1c is good at 6.6. Cont carb-controlled diet and ss Insulin while here. (7) Non compliance w medication regimen Assessment/Plan: He was taking lisinopril and metformin which she stopped 2 months ago. According to the patient he was told to stop these by his PCP, due to kidney problems. - Current Meds Current Meds: Current Medications Generic Name Dose Route Start Last Admin Trade Name Freq PRN Reason Stop Dose Admin Albuterol/Ipratropium 3 ml 05/17/20 11:00 05/17/20 09:51 Duoneb INH 3 ml RTQID BEV Administration Aspirin 81 mg 05/17/20 10:00 05/17/20 10:08 Ecotrin PO 81 mg DAILY BEV Administration Ferrous Gluconate 324 mg 05/17/20 12:00 05/17/20 11:45 Fergon PO 324 mg DAILYWM BEV Administration Cefazolin Sodium 2 gm/ Sodium 100 mls @ 200 mls/hr 05/16/20 16:00 05/17/20 08:55 Chloride IV Infused Q8H BEV Infusion Insulin Aspart 1 - 9 unit 05/15/20 08:00 05/17/20 12:03 Novolog SUBQ 3 unit 0800,1200,1700,2100 BEV Administration Protocol Loratadine 10 mg 05/17/20 10:00 05/17/20 10:08 Claritin PO 10 mg DAILY BEV Administration Methylprednisolone 40 mg 05/15/20 07:00 05/17/20 06:21 Solu-Medrol (40mg Vial) IVP 40 mg TID BEV Administration Pantoprazole Sodium 40 mg 05/15/20 07:00 05/17/20 06:22 Protonix IVP 40 mg QDAC BEV Administration Polyethylene Glycol 17 gm 05/16/20 09:00 05/17/20 08:24 Miralax PO 17 gm DAILY BEV Administration Senna 8.6 - 17.2 mg 05/17/20 11:00 05/17/20 10:30 Senokot PO 8.6 mg DAILY EBV Administration Sodium Chloride 10 ml 05/15/20 09:00 05/17/20 08:25 Normal Saline Flush 0.9% IVP 10 ml 0100,0900,1700 BEV Administration Sodium Chloride 10 ml 05/15/20 06:17 08/25/20 06:22 Normal Saline Flush 0.9% IVP 10 ml PRN PRN Administration NEEDED PER PROVIDER ORDERS Throat Lozenges 1 lozenge 05/17/20 10:17 05/17/20 10:31 Cepacol MM 1 lozenge Q2HR PRN Administration Throat pain - Lab Result Fish Bone Diagrams: 05/17/20 04:44 05/17/20 04:44 - Additional Planning My Orders: My Active Orders 05/17/20 Pulmonary Wellness Consult [LIFECTR] Routine 05/17/20 10:00 Aspirin EC [Ecotrin] 81 mg PO DAILY Loratadine [Claritin] 10 mg PO DAILY 05/17/20 10:17 Benzocaine/Menthol [Cepacol] 1 lozenge MM Q2HR PRN 05/17/20 11:00 Ipratropium/Albuterol [Duoneb] 3 ml INH RTQID Senna [Senokot] 8.6 - 17.2 mg PO DAILY 05/17/20 12:00 Ferrous Gluconate [Fergon] 324 mg PO DAILYWM 05/17/20 12:26 Nocturnal O2 Saturation Study [RC] .ONCE Subjective - Subjective Patient Reports: No Complaints (except he is eager to go home) Nursing Reports: Other (RT said he did not need BIPAP as of 99 this day) Objective Vital Signs: Vital Signs - 24 hr 05/16/20 05/16/20 05/16/20 13:00 13:20 13:30 Temperature Heart Rate 92 92 Heart Rate [ 98 Monitoring electrodes] Respiratory 22 18 Rate Blood Pressure 114/85 H [Left Brachial artery] Blood Pressure [Left Radial artery] O2 Saturation 94 05/16/20 05/16/20 05/16/20 14:00 15:00 16:00 Temperature 37 C Heart Rate Heart Rate [ 95 91 88 Monitoring electrodes] Respiratory 21 18 21 Rate Blood Pressure 126/46 L 117/59 L 124/68 [Left Brachial artery] Blood Pressure [Left Radial artery] O2 Saturation 94 95 100 05/16/20 05/16/20 05/16/20 17:00 17:48 18:00 Temperature Heart Rate 100 Heart Rate [ 93 102 H Monitoring electrodes] Respiratory 25 H 20 24 Rate Blood Pressure 117/64 118/60 [Left Brachial artery] Blood Pressure [Left Radial artery] O2 Saturation 92 92 0805/16/20 05/16/20 18:55 20:22 21:00 Temperature 37.6 C H Heart Rate Heart Rate [ 97 94 88 Monitoring electrodes] Respiratory 26 H 22 25 H Rate Blood Pressure 105/74 134/85 H 141/72 H [Left Brachial artery] Blood Pressure [Left Radial artery] O2 Saturation 94 98 95 05/16/20 05/16/20 05/16/20 22:00 22:15 23:00 Temperature Heart Rate 94 Heart Rate [ 89 86 Monitoring electrodes] Respiratory 25 H 20 25 H Rate Blood Pressure 147/75 H [Left Brachial artery] Blood Pressure 131/99 H [Left Radial artery] O2 Saturation 97 95 05/16/20 05/17/20 05/17/20 23:01 00:00 01:00 Temperature 36.5 C Heart Rate 86 Heart Rate [ 79 73 Monitoring electrodes] Respiratory 18 17 Rate Blood Pressure 127/61 124/51 L [Left Brachial artery] Blood Pressure [Left Radial artery] O2 Saturation 93 93 05/17/20 05/17/20 05/17/20 02:00 03:00 04:00 Temperature 36.7 C Heart Rate Heart Rate [ 103 H 77 102 H Monitoring electrodes] Respiratory 22 27 H 21 Rate Blood Pressure 150/101 H 145/58 H 179/66 H [Left Brachial artery] Blood Pressure [Left Radial artery] O2 Saturation 96 95 93 05/17/20 05/17/20 05/17/20 05:00 06:00 06:13 Temperature Heart Rate 88 Heart Rate [ 82 81 Monitoring electrodes] Respiratory 19 20 20 Rate Blood Pressure 131/68 H 137/74 H [Left Brachial artery] Blood Pressure [Left Radial artery] O2 Saturation 95 95 05/17/20 05/17/20 05/17/20 07:00 08:00 09:00 Temperature 36.7 C Heart Rate Heart Rate [ 81 75 86 Monitoring electrodes] Respiratory 20 18 17 Rate Blood Pressure 151/62 H 118/53 L 117/68 [Left Brachial artery] Blood Pressure [Left Radial artery] O2 Saturation 92 100 94 05/17/20 05/17/20 05/17/20 09:51 09:55 10:00 Temperature Heart Rate 91 97 Heart Rate [ 93 Monitoring electrodes] Respiratory 23 22 Rate Blood Pressure 144/63 H [Left Brachial artery] Blood Pressure [Left Radial artery] O2 Saturation 95 05/17/20 05/17/20 11:00 12:00 Temperature 37.3 C Heart Rate Heart Rate [ 93 92 Monitoring electrodes] Respiratory 20 20 Rate Blood Pressure 124/48 L 123/79 [Left Brachial artery] Blood Pressure [Left Radial artery] O2 Saturation 99 97 Oxygen O2 Source Nasal cannula I&O (Last 24 Hrs): Intake and Output Totals x24h 05/15/20 05/16/20 05/17/20 23:59 23:59 23:59 Intake Total 2467 2190 1360 Output Total 1685 2100 1400 Balance 782 90 -40 General: Alert, Oriented x3 HEENT: Mucous membr. moist/pink Neck: Supple, No JVD Neuro: Alert, Non Focal Cardiovascular: Regular rate, No murmurs Respiratory: Wheezes (Diffuse fine wheezes and prolonged expir phase) Abdomen: Soft Extremities: Other (1+ bilat leg edema to below knees) - Results Results: Laboratory Results WBC 17.8 x10^3/uL (4.8-10.8) H 05/17/20 04:44 RBC 2.91 10^6/uL (4.70-6.10) L 05/17/20 04:44 Hgb 7.7 g/dL (14.0-18.0) L 05/17/20 04:44 Hct 25.9 % (42.0-52.0) L 05/17/20 04:44 MCV 89.0 fL (80.0-94.0) 05/17/20 04:44 MCH 26.5 pg (27.0-31.0) L 05/17/20 04:44 MCHC 29.7 g/dL (32.0-36.0) L 05/17/20 04:44 RDW 15.9 % (12.0-15.0) H 05/17/20 04:44 Plt Count 341 10^3/uL (130-450) 05/17/20 04:44 MPV 11.2 fL (7.4-11.4) 05/17/20 04:44 Neut # (Auto) 15.8 10^3/uL (1.5-6.6) H 05/17/20 04:44 Lymph # (Auto) 0.7 10^3/uL (1.5-3.5) L 05/17/20 04:44 [place] # (Auto) 1.1 10^3/uL (0.0-1.0) H 05/17/20 04:44 Eos # (Auto) 0.0 10^3/uL (0.0-0.7) 05/17/20 04:44 Baso # (Auto) 0.0 10^3/uL (0.0-0.1) 05/17/20 04:44 Absolute Nucleated RBC 0.03 x10^3/uL 05/17/20 04:44 Nucleated RBC % 0.2 /100WBC 05/17/20 04:44 Manual Slide Review Indicated 05/15/20 05:20 Platelet Estimate NORMAL (130-450,000) (NORMAL) 05/15/20 05:20 Platelet Morphology NORMAL APPEARANCE (NORMAL) 05/15/20 05:20 RBC Morph Micro Appear 1+ MACROCYTOSIS (NORMAL) 2+ HYPOCHROMASIA (NORMAL) 1+ ANISOCYTOSIS (NORMAL) 05/15/20 05:20 RBC Morph Micro Appear 1+ MACROCYTOSIS (NORMAL) 2+ HYPOCHROMASIA (NORMAL) 1+ ANISOCYTOSIS (NORMAL) 05/15/20 05:20 RBC Morph Micro Appear 1+ MACROCYTOSIS (NORMAL) 2+ HYPOCHROMASIA (NORMAL) 1+ ANISOCYTOSIS (NORMAL) 05/15/20 05:20 PT 15.1 secs (9.9-12.6) H 05/15/20 05:20 INR 1.3 (0.8-1.2) H 05/15/20 05:20 Bld Gas Analysis Time 06:59 05/15/20 06:50 Sample Site RIGHT RADIAL 05/15/20 06:50 ABG pH 7.34 (7.35-7.45) L 05/15/20 06:50 ABG pCO2 42 mmHg (34-45) 05/15/20 06:50 ABG pO2 68 mmHg (80-100) L 05/15/20 06:50 ABG HCO3 22.0 mmol/L (22.0-26.0) 05/15/20 06:50 ABG Total CO2 23.3 MMOL/L (21.0-29.0) 05/15/20 06:50 ABG O2 Saturation 91 % (94-98) L 05/15/20 06:50 ABG Base Excess -3.5 mmol/L (-2.0-3.0) L 05/15/20 06:50 Luis Test POSITIVE 05/15/20 06:50 O2 Delivery Device NASAL CANNULA 05/15/20 06:50 O2 Liters/Min 3.00 LPM 05/15/20 06:50 Sodium 135 mmol/L (135-145) 05/17/20 04:44 Potassium 5.3 mmol/L (3.5-5.0) H 05/17/20 04:44 Chloride 101 mmol/L (101-111) 05/17/20 04:44 Carbon Dioxide 25 mmol/L (21-32) 05/17/20 04:44 Anion Gap 9.0 (6-13) 05/17/20 04:44 BUN 49 mg/dL (6-20) H 05/17/20 04:44 Creatinine 1.6 mg/dL (0.6-1.2) H 05/17/20 04:44 Estimated GFR (MDRD) 42 (>89) L 05/17/20 04:44 Glucose 196 mg/dL (70-100) H 05/17/20 04:44 Estimat Average Glucose 143 mg/dL (70-100) H 05/15/20 09:10 Hemoglobin A1c % 6.6 % (4.27-6.07) H 05/15/20 09:10 Calcium 9.0 mg/dL (8.5-10.3) 05/17/20 04:44 Phosphorus 4.8 mg/dL (2.5-4.6) H 05/17/20 04:44 Magnesium 2.5 mg/dL (1.7-2.8) 05/17/20 04:44 Iron 8 ug/dL (45-182) L 05/15/20 05:20 TIBC 442 ug/dL (250-450) 05/15/20 05:20 % Saturation 2 % (20-50) L 05/15/20 05:20 Transferrin 316 mg/dL (180-329) 05/15/20 05:20 Ferritin 5.1 ng/mL (23.9-336.2) L 05/15/20 05:20 Total Bilirubin 0.7 mg/dL (0.2-1.0) 05/15/20 05:20 AST 30 IU/L (10-42) 05/15/20 05:20 ALT 24 IU/L (10-60) 05/15/20 05:20 Alkaline Phosphatase 83 IU/L (42-121) 05/15/20 05:20 Troponin I High Sens 41.7 ng/L (2.3-19.7) H* 05/15/20 09:10 B-Natriuretic Peptide 521 pg/mL (5-100) H 05/16/20 04:41 Total Protein 7.4 g/dL (6.7-8.2) 05/15/20 05:20 Albumin 3.6 g/dL (3.2-5.5) 05/15/20 05:20 Globulin 3.8 g/dL (2.1-4.2) 05/15/20 05:20 Albumin/Globulin Ratio 0.9 (1.0-2.2) L 05/15/20 05:20 Lipase 24 U/L (22-51) 05/15/20 05:20 Nasal Screen MRSA (PCR) NEGATIVE (NEGATIVE) 05/15/20 07:20 Stl Occult Blood (IFOB) NEGATIVE (NEGATIVE) 05/17/20 09:38 Coronavirus (PCR) NEGATIVE 05/15/20 07:20 Blood Type A POSITIVE 05/15/20 06:11 Blood Type Recheck A POSITIVE 05/15/20 05:20 Antibody Screen NEGATIVE 05/15/20 06:11 Crossmatch IS Only See Detail 05/15/20 06:11
[2020-05-18] MEDS: SODIUM CHLORIDE FLUSH 0.9% 10 ML SYRINGE IVP SCH ×2 (00:40→07:55)
[2020-05-18 04:48] LABS: BASOPHILS % (AUTO) 0.1 %; LYMPHOCYTES # (AUTO) 0.8 10^3/uL (1.5-3.5); LYMPHOCYTES % (AUTO) 4.5 %; MEAN CORPUSCULAR HEMOGLOBIN 27.1 pg (27.0-31.0); MEAN CORPUSCULAR HGB CONC 30.2 g/dL (32.0-36.0); MEAN CORPUSCULAR VOLUME 89.8 fL (80.0-94.0); MEAN PLATELET VOLUME 10.8 fL (7.4-11.4); MONOCYTES # (AUTO) 1.1 10^3/uL (0.0-1.0); MONOCYTES % (AUTO) 6.1 %; NEUTROPHILS # (AUTO) 15.8 10^3/uL (1.5-6.6); NEUTROPHILS % (AUTO) 88.2 %; PLT - PLATELET COUNT 348 10^3/uL (130-450); RED BLOOD COUNT 2.95 10^6/uL (4.70-6.10); WHITE BLOOD COUNT 17.9 x10^3/uL (4.8-10.8)
[2020-05-18 05:01] LABS: CREATININE 1.5 mg/dL (0.6-1.2); MAGNESIUM 2.3 mg/dL (1.7-2.8); PHOSPHORUS 4.5 mg/dL (2.5-4.6)
[2020-05-18] MEDS: PANTOPRAZOLE 40 MG VIAL IVP SCH (06:42)
[2020-05-18] MEDS: methylPREDNISolone SUCCINATE 40 MG/ML VIAL IVP SCH (06:43)
[2020-05-18] MEDS: SODIUM CHLORIDE FLUSH 0.9% 10 ML SYRINGE IVP PRN (06:43)
[2020-05-18] MEDS: FERROUS GLUCONATE 324 MG TABLET PO SCH (07:52)
[2020-05-18] MEDS: ASPIRIN EC 81 MG TABLET PO SCH (07:52)
[2020-05-18] MEDS: polyethylene glycoL 3350 17 GM PACKET PO SCH (07:53)
[2020-05-18] MEDS: LORATADINE 10 MG TABLET PO SCH (07:53)
[2020-05-18] MEDS: SENNA 8.6 MG TABLET PO SCH (07:53)
[2020-05-18] MEDS ORDERED: SODIUM CHLORIDE 0.9% 100ML 100 ML IV ONE (07:56)
[2020-05-18] MEDS ORDERED: INSULIN ASPART 300 UNIT/3 ML PEN SUBQ SCH (08:00)
[2020-05-18] MEDS: ceFAZolin 2 GM in SODIUM CHLORIDE 0.9% 100ML 100 ML IV SCH (08:10)
[2020-05-18 08:19] VITALS: BP 149/67
[2020-05-18] MEDS: IPRATROPIUM/ALBUTEROL 3 ML NEB INH SCH (08:39)
--- NOTE | 2020-05-18 08:41 | DISCHARGE SUMMARY ---
Discharge Summary Admit Date: 05/15/20 Discharge Date: 05/18/20 Discharging Provider: Dr Ledy Moreno Primary Care Provider: Dr Mir Diaz Code Status: Do Not Attempt Resuscitation Condition at Discharge: Stable Discharge Disposition: 01 Home, Self Care - [facility] History of Present Illness: From the admission H&P of Dr Elizabeth Wilcox: History primarily obtained from as the patient iss on rescue BiPAP for respiratory support. This is a 74yo male has a PMH significant for COPD, DM2, and HTN. Approximately 5-6 days ago the patient began to experience increased SOB and difficulty breathing during normal daily activities. As his symptoms worsened, he eventually was SOB at rest and had to sleep sitting up in a chair. He had used his home PRN inhaler of albuterol and a nebulizer (type unknown) for his symptoms with little relief. He denies cough, dizziness, syncope, chest pain or chest palpitations. His explained that since his back surgery last summer his mobility has steadily declined and his frequency of SOB has increased. She also noted that within the last two months he has stopped taking his medications for his DM and HTN. Home oxygen was ordered for the patient however they are still awaiting its arrival. The exam is significant for expiratory wheezes with crepitant crackles all throughout lung killian, tachypnea, bilateral +3 pitting edema of his legs, and sinus tachycardia. While in the ED his resp rate was in the 30s requiring him to be placed on rescue BiPAP. He is being admitted to the ICU for acute respiratory distress with hypoxia. There is a discrepancy between the patient's wishes and his DPOA (his ) regarding Code status, but we will follow the patient's wishes and make him DNR and follow up with an advanced care plan when he is more stable. - HOSPITAL COURSE Hospital Course: (1) Acute respiratory failure with hypoxia This patient had recently been prescribed oxygen at night and he bought his own [employer] oxygen concentrator which just arrived to his house while he was an inpatient. He had not been trained on using it but said he does not want to be instructed, as he said he will read the package insert. While here, he was put on BiPAP and needed this for 2 consecutive nights, then it was weaned down to nasal cannula oxygen. On day of discharge, he had an oxygen oximetry walking test and required 1L O2 setiing at rest and the same with exertion. The did bring in the new device to bedside and RT did teach the pt and how use the new home O2 tank. (2) Staphylococcal pneumonia The CXR was read as having an infiltrate. He was started on empiric iv Ceftriaxone and Zithromax. This was changed to iv Ancef when sputum culture returned with identification of methacilllin-sensitive Staph. He was discharged to take several more days of oral Ceftin. The initial chest x-ray done 05/15/[address] scan to assure that this is not malignancy versus an infiltrate. A CT chest was done and the CT did not show a mass. (3) Acute exacerbation of COPD with asthma The patient was not using his DuoNeb's but has a nebulizer at home. He was started on nebs and iv steroids and improved. He was discharged to complete a Medrol Dose Chi and encouraged to use his nebulizer/MDI as prescribed. (4) Pulm HTN An Echo was done to evaluate LV and RV function and this found preserved function, moderate pulmonary pretension with PA pressure 67 mmHg. (5) Iron deficiency anemia The Hgb was 6.3 which wallace to 8 after transfusion of 2 units of blood. This severe anemia was also adding to his dyspnea, and the anemia needs further work- up. Low iron stores were found, but stool was guaic neg. He was prescribed new oral Iron replacement at discharge. (6) Acute kidney injury superimposed on CKD He has only had the present labs here at our hospital during this admission, and the creatinine is in the 1.8-1.9 range. (7) Diabetes mellitus, Type 2 He stopped metformin but his A1c is good at 6.6. We ordered a carb-controlled diet and ss Insulin while here. (8) Non compliance w medication regimen He was taking Lisinopril and Metformin which she stopped 2 months ago. According to the patient, he was told to stop these by his PCP, due to kidney problems. He also has been non-compliant with prescribed inhalers, and reported to the respiratory therapist that "he has a closet-full of nebulizer meds". He was instructed to use these as ordered. - ALLERGIES Allergies/Adverse Reactions: Allergies Allergy/AdvReac Type Severity Reaction Status Date / Time Opioids - Morphine Analogues Allergy Itching Verified 01/16/19 16:42 Sulfa (Sulfonamide Allergy Unknown Verified 01/16/19 16:42 Antibiotics) - MEDICATIONS Home Medications: Ambulatory Orders Medication Instructions Recorded Confirmed Albuterol Sulfate [Proair Hfa 2 puffs INH Q4H PRN 05/15/20 05/15/20 Inhaler] Aspirin [Aspirin EC] 81 mg PO DAILY 05/15/20 05/15/20 Fluticasone/Salmeterol [Advair Hfa 2 puffs INH BID 05/15/20 05/15/20 115-21 Mcg Inhaler] Loratadine [Claritin] 10 mg PO DAILY 05/15/20 05/15/20 Multivit,Calc,Mins/Folic Acid 1 tab PO DAILY 05/15/20 05/15/20 [One-A-Day Proactive 65 Plus Tb] Omeprazole 20 mg PO DAILY 05/15/20 05/15/20 Ferrous Gluconate [Fergon] 324 mg PO DAILYWM #30 tablet 05/17/20 Ipratropium/Albuterol [Duoneb] 3 ml INH QID #30 neb 05/17/20 Methylprednisolone [Medrol Dose 1 each PO .PACKAGEINSTRUCTIONS 6 05/17/20 Pack] Days #1 each cefUROXime axetiL [Ceftin] 250 mg PO Q12H #8 tablet 05/17/20 - PHYSICAL EXAM AT DISCHARGE General Appearance: positive: No acute distress, Alert Eyes Bilateral: positive: Normal inspection, EOMI ENT: positive: ENT inspection nml, No signs of dehydration Neck: positive: Nml inspection, No JVD Respiratory: positive: No respiratory distress, Other (Prolonged expiratory phase, no wheezing, rales or rhonchi) Cardiovascular: positive: Regular rate & rhythm, No murmur Abdomen: positive: Non-tender, No distention Skin: positive: Warm, Dry, Pallor Extremities: positive: Other (Trace pretibial edema and venous stasis changes.) Neurologic/Psychiatric: positive: Oriented x3 (Nonfocal) - LABS Result Diagrams: 05/18/20 04:20 05/18/20 04:20 - DIAGNOSTIC IMAGING Diagnostic Imaging Results: Final report reviewed - FOLLOW UP Follow Up: See PCP for hospital follow-up in the next 1 to 2 weeks. - TIME SPENT Time Spent in Discharge (Minutes): 60
--- NOTE | 2020-05-18 09:12 | CT Report ---
PROCEDURE: CHEST WO INDICATIONS: R sided infiltrate vs mass TECHNIQUE: Noncontrast 5 mm thick sections acquired from the pulmonary apices to the posterior costophrenic angl es. 7 mm thick coronal and sagittal MIP reformats were then acquired. For radiation dose reduction, the following was used: automated exposure control, adjustment of mA and/or kV according to patient size. COMPARISON: Chest radiographs dated 05/15/2020, 05/16/2020. FINDINGS: Image quality: Excellent. Lungs and pleura: No acute consolidation. Scattered scarring/atelectasis. There is patchy right lowe r lobe atelectasis, and to lesser extent within the left lung base. No pleural effusions or pneumothorax. Diffuse peribronchial cuffing suggestive of nonspecific bronc hitis and/or reactive airways disease. Mediastinum: Heart size is normal. Coronary artery calcifications are noted. No pericardial effu maryann. No mediastinal adenopathy by size criteria. Thoracic aorta and central pulmonary arteries are normal in size. Esophagus is normal in caliber. No hiatal hernia. Bones and chest wall: No suspicious bony lesions. No vertebral body compression fractures. No axil сергей or supraclavicular adenopathy by size criteria. The thyroid is normal in size. Nonspecific presumed right renal cyst, partially visualized. Status post cholecystectomy Scattered vascular calcifications are present in the aorta. IMPRESSION: Overall, no focal consolidation identified. Mild streaky bilateral basilar atelectasis/scarring, righ t slightly greater than left. Diffuse peribronchial cuffing suggestive of nonspecific bronchitis and/or reactive airways disease. Reviewed by: Berry Rivera MD on 05/18/2020 9:11 AM PDT Approved by: Berry Rivera MD on 05/18/2020 9:11 AM PDT Station ID: [id number]
== END 2020-05-18 09:50 | disposition home or self-care (01) | DRG 189 ==
LOC: EDUNIT# → ED 04:45 → ICU 06:17
PROVIDERS: ADMIT Internal Medicine; ATTEND Internal Medicine
DX: J96.01 Acute respiratory failure with hypoxia (principal); J18.9 Pneumonia, unspecified organism; J15.211 Pneumonia due to Methicillin susceptible Staphylococcus aureus; D64.9 Anemia, unspecified; R60.9 Edema, unspecified; J44.1 Chronic obstructive pulmonary disease with (acute) exacerbation; F17.200 Nicotine dependence, unspecified, uncomplicated; J44.0 Chronic obstructive pulmonary disease with (acute) lower respiratory infection; N17.9 Acute kidney failure, unspecified; I12.9 Hypertensive chronic kidney disease with stage 1 through stage 4 chronic kidney disease, or unspecified chronic kidney disease; E11.22 Type 2 diabetes mellitus with diabetic chronic kidney disease; N18.9 Chronic kidney disease, unspecified; I27.29 Other secondary pulmonary hypertension; F17.210 Nicotine dependence, cigarettes, uncomplicated; D50.9 Iron deficiency anemia, unspecified; K21.9 Gastro-esophageal reflux disease without esophagitis; T46.4X6A Underdosing of angiotensin-converting-enzyme inhibitors, initial encounter; T38.3X6A Underdosing of insulin and oral hypoglycemic [antidiabetic] drugs, initial encounter; T48.6X6A Underdosing of antiasthmatics, initial encounter; Z91.128 Patient's intentional underdosing of medication regimen for other reason; Y92.009 Unspecified place in unspecified non-institutional (private) residence as the place of occurrence of the external cause; Z99.81 Dependence on supplemental oxygen; Z66 Do not resuscitate; Z20.828 Contact with and (suspected) exposure to other viral communicable diseases; Z74.09 Other reduced mobility; Z79.82 Long term (current) use of aspirin; Z79.899 Other long term (current) drug therapy
CPT/HCPCS: 36415; 36600; 71045; 71250; 80048; 80053; 82274; 82728; 82803; 83036; 83540; 83690; 83735; 83880; 84100; 84466; 84484; 85014; 85018; 85025; 85610; 86850; 86900; 86901; 86920; 87040; 87070; 87150; 87181; 87205; 93005; 93306; 94640; 94660; 94761; 96365; 96375; 99284; 99285; A9270; J2060; J2916; P9016; U0004; 82272

== ENCOUNTER 2021-09-03 23:31 | Outpatient (CLI) | payer MEDICARE, OTHER | END 2021-09-03 23:32 | disposition critical access hospital (66) | LOC: EMS 23:31 | DX: R06.09 Other forms of dyspnea (principal) | CPT/HCPCS: A0425; A0427 ==

== ENCOUNTER 2021-09-03 23:46 | Inpatient (IN) | payer MEDICARE, OTHER ==
[2021-09-04 00:11] LABS: BASOPHILS % (AUTO) 0.2 %; EOSINOPHILS # (AUTO) 0.2 10^3/uL (0.0-0.7); EOSINOPHILS % (AUTO) 1.9 %; LYMPHOCYTES # (AUTO) 1.9 10^3/uL (1.5-3.5); LYMPHOCYTES % (AUTO) 15.5 %; MEAN CORPUSCULAR HEMOGLOBIN 23.1 pg (27.0-31.0); MEAN CORPUSCULAR HGB CONC 28.1 g/dL (32.0-36.0); MEAN CORPUSCULAR VOLUME 82.4 fL (80.0-94.0); MEAN PLATELET VOLUME 10.8 fL (7.4-11.4); MONOCYTES # (AUTO) 1.3 10^3/uL (0.0-1.0); MONOCYTES % (AUTO) 11.1 %; NEUTROPHILS # (AUTO) 8.5 10^3/uL (1.5-6.6); NEUTROPHILS % (AUTO) 70.9 %; PLT - PLATELET COUNT 374 10^3/uL (130-450); RED BLOOD COUNT 2.16 10^6/uL (4.70-6.10); RED CELL DISTRIBUTION WIDTH 15.6 % (12.0-15.0)
--- NOTE | 2021-09-04 00:22 | ED Physician Documentation ---
PD HPI DYSPNEA - Stated complaint Stated Complaint: SOA - Chief complaint Chief Complaint: Resp - History obtained from History obtained from: Patient, EMS - Additional information Additional information: The patient comes emergency department for chief complaint of dyspnea on exertion, increasing for the last 3 weeks. The patient does have a history of COPD and normally uses oxygen at night, but states that lately, he has felt like he has to use it [id number]. He states that he is not able to walk very far generally without getting short of breath, but lately, he has only been able to walk about 10 feet to the bathroom before he feels completely winded and has to sit down. He states he just has to get on his nebulizer machine until he feels better. He states he takes his nebs on room air. He has noticed that his lower extremities have been increasingly edematous. Patient states that he has not had any other new symptoms. No chest pain. No black tarry stools or overtly bloody stools. No fever or chills. No cough. The patient states that he has felt like this 1 other time and that was about a year ago, when he came to the emergency department for increasing dyspnea and was found to be very anemic. He was admitted to the hospital at that time and states that he received a couple units of blood in transfusion. The patient has been on a multivitamin with iron since. He states they never really did figure out why he was so anemic. He did not have any blood in his stools at that time and was not anticoagulated. He states he is not anticoagulated now. Review of the records reveals that the patient was dyspneic and had increasing lower extremity edema at that time, too. No other complaints at this time. Review of Systems Ten Systems: 10 systems reviewed and negative Constitutional: reports: Reviewed and negative Eyes: reports: Reviewed and negative Ears: reports: Reviewed and negative Nose: reports: Reviewed and negative Throat: reports: Reviewed and negative Cardiac: reports: Reviewed and negative Respiratory: reports: Dyspnea GI: reports: Reviewed and negative : reports: Reviewed and negative Skin: reports: Reviewed and negative Musculoskeletal: reports: Extremity swelling Neurologic: reports: Reviewed and negative Psychiatric: reports: Reviewed and negative Endocrine: reports: Reviewed and negative Immunocompromised: reports: Reviewed and negative PD PAST MEDICAL HISTORY - Past Medical History Cardiovascular: Hypertension Respiratory: COPD Neuro: None Endocrine/Autoimmune: Type 2 diabetes GI: GERD : Other (Both the and patient indicated a previous issue with his kidneys last summer (2018) which occured post operatively but neither could define what.) HEENT: Other (Uses dentures) Psych: None Musculoskeletal: Chronic back pain (Back surgery in summer 2018) - Past Surgical History Past Surgical History: Yes Ortho: Shoulder arthroplasty (Unknown year), Spine surgery (November 2018 then again in March 2019 to repair loose hard palm. ) - Present Medications Home Medications: Ambulatory Orders Medication Instructions Recorded Confirmed Albuterol Sulfate [Proair Hfa 2 puffs INH Q4H PRN 05/15/20 09/04/21 Inhaler] Aspirin [Aspirin EC] 81 mg PO DAILY 05/15/20 09/04/21 Fluticasone/Salmeterol [Advair Hfa 2 puffs INH BID 05/15/20 09/04/21 115-21 Mcg Inhaler] Loratadine [Claritin] 10 mg PO DAILY 05/15/20 09/04/21 Multivit,Calc,Mins/Folic Acid 1 tab PO DAILY 05/15/20 09/04/21 [One-A-Day Proactive 65 Plus Tb] Omeprazole 20 mg PO DAILY 05/15/20 09/04/21 Ferrous Gluconate [Fergon] 324 mg PO DAILYWM #30 tablet 05/17/20 09/04/21 Ipratropium/Albuterol [Duoneb] 3 ml INH QID #30 neb 05/17/20 09/04/21 cefUROXime axetiL [Ceftin] 250 mg PO Q12H #8 tablet 05/17/20 09/04/21 methylPREDNISolone [Medrol Dose 1 each PO .PACKAGEINSTRUCTIONS 6 05/17/20 Pack] Days #1 each - Allergies Allergies/Adverse Reactions: Allergies Allergy/AdvReac Type Severity Reaction Status Date / Time Opioids - Morphine Analogues Allergy Itching Verified 09/03/21 23:50 Sulfa (Sulfonamide Allergy Unknown Verified 09/03/21 23:50 Antibiotics) - Social History Does the pt smoke?: Yes Smoking Status: Current every day smoker Does the pt drink ETOH?: No Does the pt have substance abuse?: No - Immunizations Immunizations are current?: Yes - POLST Patient has POLST: No POLST Status: DNR PD ED PE NORMAL - Vitals Vital signs reviewed: Yes - General General: Alert and oriented X 3, No acute distress - HEENT HEENT: Atraumatic, PERRL, EOMI, Moist mucous membranes - Neck Neck: Supple, no meningeal sign - Cardiac Cardiac: RRR, No murmur - Respiratory Respiratory: No respiratory distress, Other (Faint end expiratory wheezes with fairly good air movement bilaterally) - Abdomen Abdomen: Soft, Non tender, Non distended - Derm Derm: Warm and dry, Other (Moderate pallor) - Extremities Extremities: No deformity, Other (Marked pitting edema symmetrically, bilateral lower extremities.) - Neuro Neuro: Alert and oriented X 3 - Psych Psych: Normal mood, Normal affect Results - Vitals Vitals: Vital Signs - 24 hr 09/03/21 09/04/21 23:51 01:29 Temperature 36.6 C Heart Rate 115 H 102 H Respiratory 24 24 Rate Blood Pressure 127/116 H O2 Saturation 98 Oxygen O2 Source Nasal cannula - Labs Labs: Laboratory Tests 09/03/21 09/03/21 09/04/21 00:03 00:03 00:03 WBC 12.0 H RBC 2.16 L Hgb 5.0 L* Hct 17.8 L* MCV 82.4 MCH 23.1 L MCHC 28.1 L RDW 15.6 H Plt Count 374 MPV 10.8 Neut # (Auto) 8.5 H Lymph # (Auto) 1.9 Newberry # (Auto) 1.3 H Eos # (Auto) 0.2 Baso # (Auto) 0.0 Absolute Nucleated RBC 0.00 Nucleated RBC % 0.0 Manual Slide Review Indicated WBC Morphology NORMAL APPEARANCE Platelet Estimate NORMAL (130-450,000) Platelet Morphology NORMAL APPEARANCE RBC Morph Micro Appear 3+ HYPOCHROMASIA Sodium 134 L Potassium 4.2 Chloride 99 L Carbon Dioxide 26 Anion Gap 9.0 BUN 19 Creatinine 1.3 H Estimated GFR (MDRD) 54 L Glucose 147 H Calcium 8.6 Total Bilirubin 0.5 AST 17 ALT 16 Alkaline Phosphatase 47 B-Natriuretic Peptide 204 H Total Protein 6.8 Albumin 3.8 Globulin 3.0 Albumin/Globulin Ratio 1.3 Lipase 24 Nasal Adenovirus (PCR) Nasal B. parapertussis DNA (PCR) Nasal Coronavir 229E PCR Nasal Coronavir HKU1 PCR Nasal Coronavir NL63 PCR Nasal Coronavir OC43 PCR Nasal Enterovir/Rhinovir PCR Nasal Influenza B PCR Nasal Influenza A PCR Nasal Parainfluen 1 PCR Nasal Parainfluen 2 PCR Nasal Parainfluen 3 PCR Nasal Parainfluen 4 PCR Nasal RSV (PCR) Nasal B.pertussis DNA PCR Nasal C.pneumoniae (PCR) Ross Human Metapneumo PCR Nasal M.pneumoniae (PCR) Nasal SARS-CoV-2 (PCR) Blood Type Antibody Screen Crossmatch IS Only 09/04/21 09/04/21 00:32 00:52 WBC RBC Hgb Hct MCV MCH MCHC RDW Plt Count MPV Neut # (Auto) Lymph # (Auto) Newberry # (Auto) Eos # (Auto) Baso # (Auto) Absolute Nucleated RBC Nucleated RBC % Manual Slide Review WBC Morphology Platelet Estimate Platelet Morphology RBC Morph Micro Appear Sodium Potassium Chloride Carbon Dioxide Anion Gap BUN Creatinine Estimated GFR (MDRD) Glucose Calcium Total Bilirubin AST ALT Alkaline Phosphatase B-Natriuretic Peptide Total Protein Albumin Globulin Albumin/Globulin Ratio Lipase Nasal Adenovirus (PCR) NOT DETECTED Nasal B. parapertussis DNA (PCR) NOT DETECTED Nasal Coronavir 229E PCR NOT DETECTED Nasal Coronavir HKU1 PCR NOT DETECTED Nasal Coronavir NL63 PCR NOT DETECTED Nasal Coronavir OC43 PCR NOT DETECTED Nasal Enterovir/Rhinovir PCR NOT DETECTED Nasal Influenza B PCR NOT DETECTED Nasal Influenza A PCR NOT DETECTED Nasal Parainfluen 1 PCR NOT DETECTED Nasal Parainfluen 2 PCR NOT DETECTED Nasal Parainfluen 3 PCR NOT DETECTED Nasal Parainfluen 4 PCR NOT DETECTED Nasal RSV (PCR) NOT DETECTED Nasal B.pertussis DNA PCR NOT DETECTED Nasal C.pneumoniae (PCR) NOT DETECTED Ross Human Metapneumo PCR NOT DETECTED Nasal M.pneumoniae (PCR) NOT DETECTED Nasal SARS-CoV-2 (PCR) NOT DETECTED Blood Type A POSITIVE Antibody Screen NEGATIVE Crossmatch IS Only See Detail PD MEDICAL DECISION MAKING - ED course Complexity details: reviewed results, re-evaluated patient, considered differential, d/w patient ED course: The patient was worked up with labs, EKG, and chest x-ray. His chest x-ray was clear, but he was found to have a very low hemoglobin of 5.0. He did not have any evidence of active bleeding, and records did reveal that last time his hemoglobin dropped like this, no clear reason was found. Just before starting transfusion, the patient had to urinate, but even standing up to try to urinate caused him to become exhausted. He sat down and then seemed to have a panic attack, breathing very hard, despite good oxygen saturation. He did have expiratory wheezes, and was given a DuoNeb, which did improve his symptoms a lot. The patient complained of his lower leg cramping, and continued to intermittently be anxious, shouting at staff to come and rubbed his leg, and shouting intermittently that he could not breathe, although his oxygen saturation was 97 to 100% on room air. The patient denied any chest pain. He was ultimately given a dose of Ativan IV which did seem to help quite a bit. He also received a second nebulizer treatment in the emergency department just before that. The patient seemed to instantly improve when the nebulizer mask was put on, and I suspected that there was a significant anxiety component to his complaints, though he certainly did have a history of significant COPD, as well. I spoke with Dr. Cannon, who agreed to admit the patient to his service. The patient has remained stable throughout his stay in the emergency department and continues to have normal vital signs. Departure - Departure Disposition: [facility] DC/[place] Clinical Impression: Severe anemia, COPD exacerbation, Panic attack Condition: Serious Discharge Date/Time: 09/04/21 03:00
[2021-09-04 00:24] LABS: HCT - HEMATOCRIT 17.8 % (42.0-52.0); SLIDE REVIEW? Indicated
[2021-09-04 00:28] LABS: ALBUMIN 3.8 g/dL (3.2-5.5); ALBUMIN/GLOBULIN RATIO 1.3 (1.0-2.2); BILIRUBIN,TOTAL 0.5 mg/dL (0.2-1.0); CALCIUM 8.6 mg/dL (8.5-10.3); CREATININE 1.3 mg/dL (0.6-1.2); POTASSIUM 4.2 mmol/L (3.5-5.0); TOTAL PROTEIN 6.8 g/dL (6.7-8.2)
[2021-09-04 00:30] LABS: PLATELET ESTIMATE, MANUAL NORMAL (130-450,000) (NORMAL); PLATELET MORPHOLOGY NORMAL APPEARANCE (NORMAL); RBC MORPHOLOGY (MULTIPLE) 3+ HYPOCHROMASIA (NORMAL); WBC MORPHOLOGY (MULTIPLE) NORMAL APPEARANCE (NORMAL)
[2021-09-04] MEDS ORDERED: FUROSEMIDE 40 MG/4 ML VIAL IVP STA (00:30)
--- NOTE | 2021-09-04 01:16 | XRAY Report ---
PROCEDURE: Chest 1 View X-Ray INDICATIONS: chest pain TECHNIQUE: One view of the chest was acquired. COMPARISON: CT chest 05/17/2020. CXR 05/16/2020. FINDINGS: Surgical changes and devices: None. Lungs and pleura: No pleural effusions or pneumothorax. Lungs are clear. Mediastinum: Mediastinal contours appear unchanged. Heart size is prominent. Bones and chest wall: No suspicious bony lesions. Overlying soft tissues appear unremarkable. IMPRESSION: No acute cardiopulmonary abnormality identified. Reviewed by: Paul Beckman MD on 09/04/2021 1:15 AM PST Approved by: Paul Beckman MD on 09/04/2021 1:15 AM PST Station ID: [id number]
[2021-09-04] MEDS ORDERED: IPRATROPIUM/ALBUTEROL 3 ML NEB INH ONE (01:20)
[2021-09-04 01:40] LABS: B. PARAPERTUSSIS- RESP PCR PAN NOT DETECTED; B. PERTUSSIS- RESP PCR PANEL NOT DETECTED; C. PNEUMONIAE- RESP PCR PANEL NOT DETECTED; CORONAVIRUS 229E-RESP PCR NOT DETECTED; CORONAVIRUS HKU1-RESP PCR NOT DETECTED; CORONAVIRUS NL63-RESP PCR NOT DETECTED; CORONAVIRUS OC43-RESP PCR NOT DETECTED; HUMAN METAPNEUMOVIRUS NOT DETECTED; INFLUENZA A- RESP PCR PANEL NOT DETECTED; INFLUENZA B - RESP PCR PANEL NOT DETECTED; M. PNEUMONIAE- RESP PCR PANEL NOT DETECTED; PARAINFLUENZA VIRUS 1 NOT DETECTED; PARAINFLUENZA VIRUS 2 NOT DETECTED; PARAINFLUENZA VIRUS 3 NOT DETECTED; PARAINFLUENZA VIRUS 4 NOT DETECTED; RHINOVIRUS/ENTEROVIRUS NOT DETECTED; RSV- RESP PCR PANEL NOT DETECTED; SARS-CoV-2 -RESP PCR PANEL NOT DETECTED
[2021-09-04] MEDS ORDERED: ONDANSETRON ODT 4 MG TABLET TL PRN (01:45)
[2021-09-04] MEDS ORDERED: ACETAMINOPHEN 325 MG TABLET PO PRN (01:45)
[2021-09-04] MEDS ORDERED: ALBUTEROL NEB 2.5 MG/3 ML INH PRN (01:50)
--- NOTE | 2021-09-04 01:56 | HISTORY & PHYSICAL EXAMINATION ---
Chief Complaint - Chief Complaint Chief Complaint: Shortness of breath History of Present Illness - Admitted From Admitted From:: Home - History Obtained From Records Reviewed: Yes History obtained from: Patient, ER Physician, EMR - History of Present Illness HPI Comment/Other: This is a 75-year-old male with a past medical history significant for COPD on 2 L of oxygen, type 2 diabetes mellitus, iron deficiency anemia who presents today complaining of worsening shortness of breath. He states he has felt short of breath now for the past few weeks but this really progressed over the past few days. He feels short of breath at rest but it is worse with activity. He has also noticed worsening lower extremity edema over the past few days. He has also had orthopnea. Denies a cough, chest pain, fevers, chills. He is not on a diuretic at home. He states he is also been quite fatigued and complains of generalized weakness over the past week or so. He has had poor appetite because of his difficulty breathing and the fatigue. He has been taking his albuterol without much relief. He has not noticed any bleeding and denies any blood in his stool or hematuria. He reports being worked up in the past for his anemia with a colonoscopy and EGD which was unremarkable except for a few polyps. He only takes iron with a multivitamin and does not otherwise take iron supplementation. He has not had his hemoglobin checked in quite some time. In the emergency department, he was noted to be afebrile but tachycardic with a heart rate in the 110s. He was normotensive. He was tachypneic with respiratory in the low 20s. He was saturating well on his 2 L of oxygen. Chest x-ray revealed no acute abnormalities. Hemoglobin came back decreased at 5.0. His BNP was only mildly elevated in the 200s. He was given a dose of Lasix and a unit of packed red blood cell in the emergency department. Medicine was consulted for admission. I discussed goals of care and he would like to be a DNR. History - Past Medical History Cardiovascular: reports: Hypertension Respiratory: reports: COPD Neuro: reports: None Endocrine/Autoimmune: reports: Type 2 diabetes GI: reports: GERD : reports: Other (Both the and patient indicated a previous issue with his kidneys last summer (2018) which occured post operatively but neither could define what.) HEENT: reports: Other (Uses dentures) Psych: reports: None Musculoskeletal: reports: Chronic back pain (Back surgery in summer 2018) MRSA Hx?: No - Past Surgical History Ortho: reports: Shoulder arthroplasty (Unknown year), Spine surgery (November 2018 then again in March 2019 to repair loose hard palm. ) - Family & Social History Family History: Mother: , Father: Family History Comment/Other: His mother at the age of 101 from natural causes. His father in his 50s from esophageal cancer. He has 1 younger brother who from coronary artery disease. Living arrangement: At home Living Situation: With spouse/s.o. Social History Notes: He is retired [employer]. He smoked a pack a day for 50 years but quit about 3 years ago. He denies alcohol use. - Substance History Use: Uses substance without health or social issues: Tobacco - POLST Patient has POLST: No POLST Status: DNR Meds/Allgy - Home Medications Home Medications: Ambulatory Orders Medication Instructions Recorded Confirmed RX: Albuterol Sulfate [Proair Hfa 2 puffs INH Q4H PRN 05/15/20 09/04/21 Inhaler] RX: Aspirin [Aspirin EC] 81 mg PO DAILY 05/15/20 09/04/21 RX: Fluticasone/Salmeterol [Advair 2 puffs INH BID 05/15/20 09/04/21 Hfa 115-21 Mcg Inhaler] RX: Loratadine [Claritin] 10 mg PO DAILY 05/15/20 09/04/21 RX: Multivit,Calc,Mins/Folic Acid 1 tab PO DAILY 05/15/20 09/04/21 [One-A-Day Proactive 65 Plus Tb] RX: Omeprazole 20 mg PO DAILY 05/15/20 09/04/21 Ipratropium/Albuterol [Duoneb] 3 ml INH QID #30 neb 05/17/20 09/04/21 RX: Ferrous Gluconate [Fergon] 324 mg PO DAILYWM #30 tablet 05/17/20 09/04/21 cefUROXime axetiL [Ceftin] 250 mg PO Q12H #8 tablet 05/17/20 09/04/21 methylPREDNISolone [Medrol Dose 1 each PO .PACKAGEINSTRUCTIONS 6 05/17/20 Pack] Days #1 each - Allergies Allergies/Adverse Reactions: Allergies Allergy/AdvReac Type Severity Reaction Status Date / Time Opioids - Morphine Analogues Allergy Itching Verified 09/03/21 23:50 Sulfa (Sulfonamide Allergy Unknown Verified 09/03/21 23:50 Antibiotics) Review of Systems - Constitutional Constitutional: reports: Fatigue, Poor appetite. denies: Fever, Chills - Ears, Nose & Throat Ears, Nose & Throat: denies: Nasal discharge, Nasal congestion, Sore throat - Cardiovascular Cariovascular: reports: Edema, Exertional dyspnea, Decr. exercise tolerance, Orthopnea. denies: Chest pain - Respiratory Respiratory: reports: Orthopnea, SOB at rest, SOB with exertion. denies: Cough, Sputum production - Gastrointestinal Gastrointestinal: reports: Vomiting. denies: Abdominal pain, Constipation, Diarrhea, Change in bowel habits, Black stools, Bloody stools, Nausea, Luis Alberto blood emesis - Genitourinary Genitourinary: denies: Dysuria, Frequency, Urgency, Hematuria - Integumentary Integumentary: denies: Rash - Neurological Neurological: reports: General weakness. denies: Focal weakness, Dizziness - Hematologic/Lymphatic Hematologic/Lymphatic: reports: Anemia. denies: Bleeding tendencies - All Other Systems All Other Systems: reports: Reviewed and negative Prior Level of Functionality: He ambulates with a walker at baseline. Exam - Vital Signs Reviewed Vital Signs: Yes Vital Signs: Vital Signs x48h Temp Pulse Resp BP Pulse Ox 09/04/21 01:29 102 H 24 09/03/21 23:51 36.6 C 115 H 24 127/116 H 98 - Physical Exam General Appearance: positive: No acute distress, Alert Eyes Bilateral: positive: Normal inspection, Conjunctivae nml ENT: positive: ENT inspection nml, Other (Nasal cannula in place.) Neck: positive: Nml inspection Respiratory: positive: No respiratory distress, Other (He is tachypneic. Breath sounds diminished bilaterally. No wheezing.) Cardiovascular: positive: Tachycardia. negative: Irregularly irregular, Bradycardia, Systolic murmur Abdomen: positive: Non-tender, No distention. negative: Tenderness Skin: positive: Warm, Dry Extremities: positive: Pedal edema (+2 to +3 pitting edema bilateral lower extremities.) Neurologic/Psychiatric: positive: Motor nml. negative: Disoriented to person, Disoriented to place, Disoriented to time Conclusion/Plan - Problem List (1) Suspected CHF (congestive heart failure) Conclusion/Plan: Suspect his dyspnea is secondary to CHF and anemia. His BNP is only mildly elevated but he is obese and this can falsely decrease his BNP. He has significant lower extremity edema. His x-ray does not suggest pulmonary vascular congestion but clinically he appears to be in CHF., We will diurese him with IV Lasix 40 mg IV daily and will consider IV Lasix in between blood transfusions. I have ordered an echocardiogram for further evaluation. Low- sodium diet. Daily weights. Strict I's and O's. (2) Anemia Conclusion/Plan: Hemoglobin is decreased at 5.0. I do suspect is likely contributing to his dyspnea and a cause of his fatigue. There has been no evidence of bleeding any has been worked up in the past without a cause of his anemia. We will start him on oral augmentation and check iron studies. We will transfuse 2 units of packed red blood cells and then recheck a hemoglobin. Will consider Lasix in between units. Check his stool for occult blood. Qualifiers: Anemia type: iron deficiency (3) COPD (chronic obstructive pulmonary disease) Conclusion/Plan: Does not appear to be in exacerbation. He is on 2 L of oxygen at home. We will continue his home inhalers with albuterol as needed. (4) Chronic respiratory failure with hypoxia Conclusion/Plan: He is on 2 L of oxygen at baseline secondary to his COPD. (5) CKD (chronic kidney disease) Conclusion/Plan: He has CKD likely secondary to his diabetes. His renal function is at baseline with a creatinine of 1.3. We will monitor his renal function urine output as he is being diuresed. Qualifiers: Chronic kidney disease stage: stage 3 (moderate) Chronic kidney disease stage 3 subtype: stage 3a (GFR 45-59) Qualified Code(s): N18.31 - Chronic kidney disease, stage 3a (6) Diabetes mellitus Conclusion/Plan: His history of diabetes but he is not on any therapy at home. His blood glucose currently well controlled. We will place him on carb controlled diet and sliding scale. 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 We will admit for IV diuresis and transfusion of packed red blood cells. An echocardiogram has been ordered. - DVT/VTE - Prophylaxis VTE/DVT Device ordered at admit?: No VTE/DVT Prophylaxis med ordered at admit?: Yes
[2021-09-04] MEDS ORDERED: ALBUTEROL NEB 2.5 MG/3 ML INH STA ×2 (02:38→02:46)
[2021-09-04] MEDS ORDERED: LORazepam 2 MG/ML VIAL ONE (02:39)
[2021-09-04] MEDS ORDERED: IPRATROPIUM/ALBUTEROL 3 ML NEB INH STA (02:45)
[2021-09-04] MEDS ORDERED: CYCLOBENZAPRINE 10 MG TABLET PO PRN (03:39)
[2021-09-04 05:57] LABS: BASOPHILS # (AUTO) 0.1 10^3/uL (0.0-0.1); BASOPHILS % (AUTO) 0.3 %; EOSINOPHILS # (AUTO) 0.3 10^3/uL (0.0-0.7); EOSINOPHILS % (AUTO) 1.8 %; HCT - HEMATOCRIT 20.7 % (42.0-52.0); LYMPHOCYTES # (AUTO) 1.2 10^3/uL (1.5-3.5); LYMPHOCYTES % (AUTO) 8.4 %; MEAN CORPUSCULAR HEMOGLOBIN 23.8 pg (27.0-31.0); MEAN CORPUSCULAR VOLUME 82.1 fL (80.0-94.0); MEAN PLATELET VOLUME 11.2 fL (7.4-11.4); MONOCYTES # (AUTO) 1.3 10^3/uL (0.0-1.0); MONOCYTES % (AUTO) 9.1 %; NEUTROPHILS # (AUTO) 11.8 10^3/uL (1.5-6.6); NEUTROPHILS % (AUTO) 79.9 %; PLT - PLATELET COUNT 391 10^3/uL (130-450); RED BLOOD COUNT 2.52 10^6/uL (4.70-6.10); RED CELL DISTRIBUTION WIDTH 15.7 % (12.0-15.0); WHITE BLOOD COUNT 14.8 x10^3/uL (4.8-10.8)
[2021-09-04 06:07] LABS: CALCIUM 8.7 mg/dL (8.5-10.3); CREATININE 1.3 mg/dL (0.6-1.2); POTASSIUM 4.5 mmol/L (3.5-5.0)
[2021-09-04 06:20] LABS: % IRON SATURATION 14 % (20-50); IRON 64 ug/dL (45-182); TOTAL IRON BINDING CAPACITY 473 ug/dL (250-450); TRANSFERRIN 338 mg/dL (180-329)
[2021-09-04] MEDS: IPRATROPIUM/ALBUTEROL 3 ML NEB INH SCH ×4 (07:00→18:00)
[2021-09-04] MEDS: BUDESONIDE 0.5 MG/2 ML NEB INH SCH ×2 (07:00→18:00)
[2021-09-04] MEDS: FORMOTEROL FUMARATE NEB 20 MCG/2 ML INH SCH ×2 (07:00→18:00)
[2021-09-04] MEDS ORDERED: FUROSEMIDE 20 MG/2 ML VIAL IVP STA (08:34)
--- NOTE | 2021-09-04 08:38 | Ultrasound Report ---
PROCEDURE: Duplex Ext Veins Bilateral INDICATIONS: FABIOLA BROWN TECHNIQUE: Real-time imaging, as well as color and pulse Doppler interrogation, were performed of the deep veins of both legs from the inguinal ligament to the popliteal fossa. COMPARISON: January 16, 2019. FINDINGS: VASCULATURE: Normal spontaneous flow and phasicity, augmentation and waveforms, and compressibility o f the vessels from the common femoral veins through the calf veins. SOFT TISSUES: Bilateral calf edema. IMPRESSION: 1.No sonographic evidence of deep venous thrombus. Reviewed by: tSeve Wilhelm MD on 09/04/2021 8:37 AM [facility] Approved by: Steve Wilhelm MD on 09/04/2021 8:37 AM [facility] Station ID: [id number]
[2021-09-04] MEDS: polyethylene glycoL 3350 17 GM PACKET PO SCH (08:54)
[2021-09-04] MEDS: SODIUM CHLORIDE FLUSH 0.9% 10 ML SYRINGE IVP SCH ×2 (08:55→17:01)
[2021-09-04] MEDS: FUROSEMIDE 40 MG/4 ML VIAL IVP SCH (09:02)
[2021-09-04] MEDS: SODIUM CHLORIDE FLUSH 0.9% 10 ML SYRINGE IVP PRN (09:03)
[2021-09-04] MEDS: FERROUS SULFATE 325 MG TABLET PO SCH (09:05)
[2021-09-04] MEDS: ENOXAPARIN 40 MG/0.4 ML SYRINGE SUBQ SCH (09:05)
[2021-09-04] MEDS: INSULIN ASPART 300 UNIT/3 ML PEN SUBQ SCH ×4 (09:08→20:59)
--- NOTE | 2021-09-04 10:38 | PHARMACY PROGRESS NOTE ---
- Best Possible Medication History Admit Date and Time: 09/04/21 0145 Processed by: Nursing Medication History completed: Yes Patient Interview: Completed Secondary Source(s): Pharmacy records, Insurance records As the person ultimately responsible for medication therapy, providers are able to order a medication from an existing home medication list in [facility] via the "Reconcile Routine" prior to Confirmation of that medication by application support developer. Such practice is discouraged except when the physician, in their clinical judgment, deems that a medical need exists for a medication without regard to previous use.
[2021-09-04 20:03] LABS: HCT - HEMATOCRIT 25.1 % (42.0-52.0); HGB - HEMOGLOBIN 7.6 g/dL (14.0-18.0)
[2021-09-05] MEDS: SODIUM CHLORIDE FLUSH 0.9% 10 ML SYRINGE IVP SCH ×3 (02:10→16:23)
[2021-09-05 05:47] LABS: BASOPHILS # (AUTO) 0.1 10^3/uL (0.0-0.1); BASOPHILS % (AUTO) 0.6 %; EOSINOPHILS # (AUTO) 0.4 10^3/uL (0.0-0.7); EOSINOPHILS % (AUTO) 3.5 %; HCT - HEMATOCRIT 24.9 % (42.0-52.0); HGB - HEMOGLOBIN 7.4 g/dL (14.0-18.0); LYMPHOCYTES % (AUTO) 15.6 %; MEAN CORPUSCULAR HEMOGLOBIN 24.7 pg (27.0-31.0); MEAN CORPUSCULAR HGB CONC 29.7 g/dL (32.0-36.0); MEAN PLATELET VOLUME 11.2 fL (7.4-11.4); MONOCYTES # (AUTO) 1.2 10^3/uL (0.0-1.0); MONOCYTES % (AUTO) 9.8 %; NEUTROPHILS # (AUTO) 8.8 10^3/uL (1.5-6.6); NEUTROPHILS % (AUTO) 69.9 %; PLT - PLATELET COUNT 363 10^3/uL (130-450); RED CELL DISTRIBUTION WIDTH 15.9 % (12.0-15.0); WHITE BLOOD COUNT 12.5 x10^3/uL (4.8-10.8)
[2021-09-05 06:01] LABS: CREATININE 1.3 mg/dL (0.6-1.2); POTASSIUM 4.2 mmol/L (3.5-5.0)
[2021-09-05] MEDS: FORMOTEROL FUMARATE NEB 20 MCG/2 ML INH SCH ×2 (07:50→17:48)
[2021-09-05] MEDS: BUDESONIDE 0.5 MG/2 ML NEB INH SCH ×2 (07:50→17:48)
[2021-09-05] MEDS: IPRATROPIUM/ALBUTEROL 3 ML NEB INH SCH ×4 (07:50→17:48)
[2021-09-05] MEDS: INSULIN ASPART 300 UNIT/3 ML PEN SUBQ SCH ×3 (08:47→16:23)
[2021-09-05] MEDS: FERROUS SULFATE 325 MG TABLET PO SCH (08:47)
[2021-09-05] MEDS: FUROSEMIDE 40 MG/4 ML VIAL IVP SCH (08:49)
[2021-09-05] MEDS: polyethylene glycoL 3350 17 GM PACKET PO SCH (08:49)
[2021-09-05] MEDS ORDERED: SENNA 8.6 MG TABLET PO SCH (09:00)
[2021-09-05] MEDS: ENOXAPARIN 40 MG/0.4 ML SYRINGE SUBQ SCH (09:00)
[2021-09-05] MEDS ORDERED: DOCUSATE SODIUM 250 MG CAPSULE PO SCH (09:00)
[2021-09-05] MEDS ORDERED: FUROSEMIDE 40 MG/4 ML VIAL IVP SCH (14:00)
[2021-09-05 14:10] VITALS: BP 142/57
[2021-09-05] MEDS: SODIUM CHLORIDE FLUSH 0.9% 10 ML SYRINGE IVP PRN (14:10)
[2021-09-05 16:00] LABS: HCT - HEMATOCRIT 30.4 % (42.0-52.0); HGB - HEMOGLOBIN 9.2 g/dL (14.0-18.0); MEAN CORPUSCULAR HEMOGLOBIN 25.7 pg (27.0-31.0); MEAN CORPUSCULAR HGB CONC 30.3 g/dL (32.0-36.0); MEAN CORPUSCULAR VOLUME 84.9 fL (80.0-94.0); MEAN PLATELET VOLUME 10.7 fL (7.4-11.4); RED BLOOD COUNT 3.58 10^6/uL (4.70-6.10); RED CELL DISTRIBUTION WIDTH 15.9 % (12.0-15.0); WHITE BLOOD COUNT 13.7 x10^3/uL (4.8-10.8)
--- NOTE | 2021-09-05 17:32 | PROVIDER PROGRESS NOTE ---
Assessment/Plan - Problem List (1) Severe anemia Assessment/Plan: At admission patient's hemoglobin was 5. Patient received 2 units of packed red blood cells with hemoglobin recheck of 7.4. Patient was transfused a 3rd unit of packed red blood cells which resulted in a hemoglobin of 9.2. Stool occult blood test was positive. General surgery was consulted for possible endoscopy. Protonix 40 mg IV bid daily ordered. (2) CHF (congestive heart failure) Assessment/Plan: Echocardiogram done today showed ejection fraction of 65 to 70%. There is impaired relaxation consistent with grade 1 diastolic dysfunction. No regional wall motion abnormality was seen. Moderately abnormal right heart pressures with RVSP at 56 mmHg. Patient has 2+ lower extremity edema. Lasix was increased from 40 IV daily to 40 IV twice daily. (3) COPD (chronic obstructive pulmonary disease) Assessment/Plan: Not in exacerbation. Patient is on 2 L of oxygen via nasal cannula at baseline at home. His oxygen saturation currently is 99%. We'll continue formoterol 20 mcg inhalation twice daily. Budesonide 0.5 mg inhalation twice daily. DuoNeb ordered 4 times daily. (4) CKD (chronic kidney disease) Qualifiers: Chronic kidney disease stage: stage 3 (moderate) Chronic kidney disease stage 3 subtype: stage 3a (GFR 45-59) Qualified Code(s): N18.31 - Chronic kidney disease, stage 3a Assessment/Plan: Stable. Creatinine 1.3 with estimated GFR of 54. (5) Diabetes mellitus Qualifiers: Diabetes mellitus type: type 2 Assessment/Plan: Accu-Cheks before every meal and at bedtime. Sliding scale insulin. - Current Meds Current Meds: Current Medications Generic Name Dose Route Start Last Admin Trade Name Freq PRN Reason Stop Dose Admin Acetaminophen 650 mg 09/04/21 01:45 09/04/21 03:29 Acetaminophen 325 Mg Tablet PO 650 mg Q4HR PRN Administration Pain 1 to 4 Albuterol 2.5 mg 09/04/21 01:50 09/04/21 19:59 Albuterol Neb 2.5 Mg/3 Ml INH 2.5 mg RTQ4H PRN Administration Wheezing Albuterol/Ipratropium 3 ml 09/04/21 07:00 09/05/21 14:58 Ipratropium/Albuterol 3 Ml Neb INH 3 ml RTQID BEV Administration Budesonide 0.5 mg 09/04/21 07:00 09/05/21 07:50 Budesonide 0.5 Mg/2 Ml Neb INH 0.5 mg RTBID BEV Administration Cyclobenzaprine HCl 5 mg 09/04/21 03:39 09/04/21 05:17 Cyclobenzaprine 10 Mg Tablet PO 5 mg TID PRN Administration Spasms Docusate Sodium 250 - 500 mg 09/05/21 09:00 09/05/21 08:49 Docusate Sodium 250 Mg Capsule PO 500 mg DAILY BEV Administration Ferrous Sulfate 325 mg 09/04/21 08:00 09/05/21 08:47 Ferrous Sulfate 325 Mg Tablet PO 325 mg DAILYWM BEV Administration Formoterol Fumarate 20 mcg 09/04/21 07:00 09/05/21 07:50 Formoterol Fumarate Neb 20 Mcg/2 Ml INH 20 mcg RTBID BEV Administration Furosemide 40 mg 09/05/21 14:00 09/05/21 14:10 Furosemide 40 Mg/4 Ml Vial IVP 40 mg BIDDIURETIC BEV Administration Insulin Aspart 1 - 9 unit 09/04/21 08:00 09/05/21 16:23 Insulin Aspart 300 Unit/3 Ml Pen SUBQ Not Given 0800,1200,1700,2100 [facility] Protocol Polyethylene Glycol 17 gm 09/04/21 09:00 09/05/21 08:49 Polyethylene Glycol 3350 17 Gm Packet PO 17 gm DAILY BEV Administration Senna 8.6 - 17.2 mg 09/05/21 09:00 09/05/21 08:49 Senna 8.6 Mg Tablet PO 17.2 mg DAILY BEV Administration Sodium Chloride 10 ml 09/04/21 01:45 09/05/21 14:10 Sodium Chloride Flush 0.9% 10 Ml Syringe IVP 10 ml PRN PRN Administration NEEDED PER PROVIDER ORDERS Sodium Chloride 10 ml 09/04/21 09:00 09/05/21 16:23 Sodium Chloride Flush 0.9% 10 Ml Syringe IVP 10 ml 0100,0900,1700 BEV Administration - Lab Result Fish Bone Diagrams: 09/05/21 15:52 09/05/21 05:00 - Additional Planning My Orders: My Active Orders 09/05/21 07:15 Transfuse RBCs Leukoreduced [RC] .ONCE 09/05/21 13:29 SCDs [RC] QSHIFT 09/05/21 14:00 FUROSEMIDE INJ 40mg VIAL [LASIX INJ 40 mg VIAL] 40 mg IVP BIDDIURETIC 09/05/21 15:27 Consult [General Surgery Consult] [CONS] Routine Subjective - Subjective Patient Reports: Other (Patient is resting comfortably in bed at time of exam. He was on 2 L of oxygen via nasal cannula with oxygen saturation at 99%. Stool occult blood test was positive today. Hemoglobin this morning was 7.4 after 2 units of blood transfusion yesterday) Objective Vital Signs: Vital Signs - 24 hr 09/04/21 09/04/21 09/04/21 18:00 19:59 20:26 Temperature 37 C Heart Rate 88 82 Heart Rate [ Brachial] Heart Rate [ 96 Monitoring electrodes] Respiratory 18 18 18 Rate Blood Pressure Blood Pressure [Left Brachial artery] Blood Pressure 150/63 H [Right Brachial artery] O2 Saturation 96 09/04/21 09/05/21 09/05/21 23:50 07:30 07:36 Temperature 37.0 C 36.9 C Heart Rate 85 Heart Rate [ Brachial] Heart Rate [ 83 85 Monitoring electrodes] Respiratory 20 18 21 Rate Blood Pressure Blood Pressure 136/86 H [Left Brachial artery] Blood Pressure 139/56 H [Right Brachial artery] O2 Saturation 99 100 09/05/21 09/05/21 09/05/21 09:42 09:58 10:45 Temperature 36.6 C 36.7 C Heart Rate 99 102 H 103 H Heart Rate [ Brachial] Heart Rate [ Monitoring electrodes] Respiratory 20 22 22 Rate Blood Pressure 109/51 L 164/64 H 150/59 H Blood Pressure [Left Brachial artery] Blood Pressure [Right Brachial artery] O2 Saturation 09/05/21 09/05/21 09/05/21 11:00 11:05 12:42 Temperature 36.8 C Heart Rate 98 95 97 Heart Rate [ Brachial] Heart Rate [ Monitoring electrodes] Respiratory 21 20 20 Rate Blood Pressure 151/59 H 137/46 H Blood Pressure [Left Brachial artery] Blood Pressure [Right Brachial artery] O2 Saturation 99 09/05/21 09/05/21 14:08 14:59 Temperature Heart Rate 84 Heart Rate [ 86 Brachial] Heart Rate [ Monitoring electrodes] Respiratory 18 Rate Blood Pressure Blood Pressure 142/57 H [Left Brachial artery] Blood Pressure [Right Brachial artery] O2 Saturation Oxygen O2 Source Nasal cannula I&O (Last 24 Hrs): Intake and Output Totals x24h 09/03/21 09/04/21 09/05/21 23:59 23:59 23:59 Intake Total 3361 1500 Output Total 3075 1675 Balance 286 -175 General: Alert, Oriented x3, Mild distress (dyspnea) HEENT: PERRLA, EOMI Neck: Supple, No JVD Neuro: Alert, Non Focal, Oriented Times 3 Cardiovascular: Regular rate Respiratory: Chest non-tender, No respiratory distress, Breath sounds nml Abdomen: Normal bowel sounds, Soft, No tenderness Extremities: No clubbing, No cyanosis, Other (2+ lower extremity edema bilaterally) Skin: No rashes, No breakdown - Results Results: Laboratory Results WBC 13.7 x10^3/uL (4.8-10.8) H 09/05/21 15:52 RBC 3.58 10^6/uL (4.70-6.10) L 09/05/21 15:52 Hgb 9.2 g/dL (14.0-18.0) L 09/05/21 15:52 Hct 30.4 % (42.0-52.0) L 09/05/21 15:52 MCV 84.9 fL (80.0-94.0) 09/05/21 15:52 MCH 25.7 pg (27.0-31.0) L 09/05/21 15:52 MCHC 30.3 g/dL (32.0-36.0) L 09/05/21 15:52 RDW 15.9 % (12.0-15.0) H 09/05/21 15:52 Plt Count 384 10^3/uL (130-450) 09/05/21 15:52 MPV 10.7 fL (7.4-11.4) 09/05/21 15:52 Neut # (Auto) 8.8 10^3/uL (1.5-6.6) H 09/05/21 05:00 Lymph # (Auto) 2.0 10^3/uL (1.5-3.5) 09/05/21 05:00 [place] # (Auto) 1.2 10^3/uL (0.0-1.0) H 09/05/21 05:00 Eos # (Auto) 0.4 10^3/uL (0.0-0.7) 09/05/21 05:00 Baso # (Auto) 0.1 10^3/uL (0.0-0.1) 09/05/21 05:00 Absolute Nucleated RBC 0.00 x10^3/uL 09/05/21 05:00 Nucleated RBC % 0.0 /100WBC 09/05/21 05:00 Manual Slide Review Indicated 09/03/21 00:03 WBC Morphology NORMAL APPEARANCE (NORMAL) 09/03/21 00:03 Platelet Estimate NORMAL (130-450,000) (NORMAL) 09/03/21 00:03 Platelet Morphology NORMAL APPEARANCE (NORMAL) 09/03/21 00:03 RBC Morph Micro Appear 3+ HYPOCHROMASIA (NORMAL) 09/03/21 00:03 Sodium 135 mmol/L (135-145) 09/05/21 05:00 Potassium 4.2 mmol/L (3.5-5.0) 09/05/21 05:00 Chloride 96 mmol/L (101-111) L 09/05/21 05:00 Carbon Dioxide 27 mmol/L (21-32) 09/05/21 05:00 Anion Gap 12.0 (6-13) 09/05/21 05:00 BUN 20 mg/dL (6-20) 09/05/21 05:00 Creatinine 1.3 mg/dL (0.6-1.2) H 09/05/21 05:00 Estimated GFR (MDRD) 54 (>89) L 09/05/21 05:00 Glucose 106 mg/dL (70-100) H 09/05/21 05:00 Calcium 9.0 mg/dL (8.5-10.3) 09/05/21 05:00 Iron 64 ug/dL (45-182) 09/04/21 04:38 TIBC 473 ug/dL (250-450) H 09/04/21 04:38 % Saturation 14 % (20-50) L 09/04/21 04:38 Transferrin 338 mg/dL (180-329) H 09/04/21 04:38 Ferritin 4.5 ng/mL (23.9-336.2) L 09/04/21 04:38 Total Bilirubin 0.5 mg/dL (0.2-1.0) 09/03/21 00:03 AST 17 IU/L (10-42) 09/03/21 00:03 ALT 16 IU/L (10-60) 09/03/21 00:03 Alkaline Phosphatase 47 IU/L (42-121) 09/03/21 00:03 B-Natriuretic Peptide 171 pg/mL (5-100) H 09/05/21 05:00 Total Protein 6.8 g/dL (6.7-8.2) 09/03/21 00:03 Albumin 3.8 g/dL (3.2-5.5) 09/03/21 00:03 Globulin 3.0 g/dL (2.1-4.2) 09/03/21 00:03 Albumin/Globulin Ratio 1.3 (1.0-2.2) 09/03/21 00:03 Lipase 24 U/L (22-51) 09/03/21 00:03 Nasal Adenovirus (PCR) NOT DETECTED 09/04/21 00:32 Nasal B. parapertussis DNA (PCR) NOT DETECTED 09/04/21 00:32 Nasal Coronavir 229E PCR NOT DETECTED 09/04/21 00:32 Nasal Coronavir HKU1 PCR NOT DETECTED 09/04/21 00:32 Nasal Coronavir NL63 PCR NOT DETECTED 09/04/21 00:32 Nasal Coronavir OC43 PCR NOT DETECTED 09/04/21 00:32 Nasal Enterovir/Rhinovir PCR NOT DETECTED 09/04/21 00:32 Nasal Influenza B PCR NOT DETECTED 09/04/21 00:32 Nasal Influenza A PCR NOT DETECTED 09/04/21 00:32 Nasal Parainfluen 1 PCR NOT DETECTED 09/04/21 00:32 Nasal Parainfluen 2 PCR NOT DETECTED 09/04/21 00:32 Nasal Parainfluen 3 PCR NOT DETECTED 09/04/21 00:32 Nasal Parainfluen 4 PCR NOT DETECTED 09/04/21 00:32 Nasal RSV (PCR) NOT DETECTED 09/04/21 00:32 Nasal B.pertussis DNA PCR NOT DETECTED 09/04/21 00:32 Nasal C.pneumoniae (PCR) NOT DETECTED 09/04/21 00:32 Ross Human Metapneumo PCR NOT DETECTED 09/04/21 00:32 Nasal M.pneumoniae (PCR) NOT DETECTED 09/04/21 00:32 Nasal SARS-CoV-2 (PCR) NOT DETECTED 09/04/21 00:32 Blood Type A POSITIVE 09/04/21 00:52 Antibody Screen NEGATIVE 09/04/21 00:52 Crossmatch IS Only See Detail 09/04/21 00:52 ABX Reporting Has patient been on IV antibiotics over the past 48 hours?: No
--- NOTE | 2021-09-05 19:28 | DISCHARGE SUMMARY ---
Discharge Summary Admit Date: 09/04/21 Discharge Date: 09/05/21 Discharging Provider: Shabbir HUERTA Primary Care Provider: Joe Hester Code Status: Do Not Attempt Resuscitation Condition at Discharge: Serious Discharge Disposition: 07 Against Medical Advice - DIAGNOSES Admission Diagnoses: Suspected CHF Anemia COPD Chronic respiratory failure with hypoxia Chronic kidney disease Diabetes mellitus Discharge Diagnoses with Status of Each Condition: Suspected CHF: Patient left AMA Patent foramen ovale vs Atrial septal defect With left to right shunting: Patient left AMA Mild aortic stenosis Anemia: Patient left AMA COPD: Chronic. Patient left AMA Chronic respiratory failure with hypoxia: Likely multifactorial 2/2 Anemia from likely GI Bleed, CHF and Patent Foramen Ovale Chronic kidney disease Diabetes mellitus: Chronic - HPI History of Present Illness: Per HPI: This is a 75-year-old male with a past medical history significant for COPD on 2 L of oxygen, type 2 diabetes mellitus, iron deficiency anemia who presents today complaining of worsening shortness of breath. He states he has felt short of breath now for the past few weeks but this really progressed over the past few days. He feels short of breath at rest but it is worse with activity. He has also noticed worsening lower extremity edema over the past few days. He has also had orthopnea. Denies a cough, chest pain, fevers, chills. He is not on a diuretic at home. He states he is also been quite fatigued and complains of generalized weakness over the past week or so. He has had poor appetite because of his difficulty breathing and the fatigue. He has been taking his albuterol without much relief. He has not noticed any bleeding and denies any blood in his stool or hematuria. He reports being worked up in the past for his anemia with a colonoscopy and EGD which was unremarkable except for a few polyps. He only takes iron with a multivitamin and does not otherwise take iron supplementation. He has not had his hemoglobin checked in quite some time. In the emergency department, he was noted to be afebrile but tachycardic with a heart rate in the 110s. He was normotensive. He was tachypneic with respiratory in the low 20s. He was saturating well on his 2 L of oxygen. Chest x-ray revealed no acute abnormalities. Hemoglobin came back decreased at 5.0. His BNP was only mildly elevated in the 200s. He was given a dose of Lasix and a unit of packed red blood cell in the emergency department. Medicine was consulted for admission. I discussed goals of care and he would like to be a DNR. - HOSPITAL COURSE Hospital Course: At presentation the patient's hemoglobin was 5.0. He was transfused a total of 3 units of packed red blood cells. By the time he left the hospital his hemoglobin was 9.2. In light of his CHF he was administered Lasix in between blood transfusions. His stool occult blood test was positive. General surgery was consulted who recommended outpatient follow-up in the general surgery outpatient clinic for endoscopy. 2D echocardiogram showed normal left ventricular size. Left ventricular wall thickness was towards the upper limit of normal to mildly increased. Overall left ventricular systolic function was normal with an ejection fraction of 65 to 70%. Impaired relaxation consistent with grade 1 diastolic dysfunction. No regional wall motion abnormality seen. Mild aortic stenosis was noted. There was evidence of a patent foramen ovale versus atrial septal defect with [id number] shunting Pain to discuss this patient's echocardiogram findings and diurese him for another day before possible discharge. This was because he had 2+ to 3+ lower extremity edema and still appeared dyspneic despite blood transfusion. This was thought to be secondary to volume overload. However the patient became significantly upset and complained about lack of communication between staff. He could not be appeased by myself or the data warehouse developer. He was advised to stay for continued treatment which he declined. He was advised that his clinical condition might worsen if he left without proper treatment he expressed understanding but was insistent on leaving. He signed the necessary documents and left AMA - ALLERGIES Allergies/Adverse Reactions: Allergies Allergy/AdvReac Type Severity Reaction Status Date / Time Opioids - Morphine Analogues Allergy Itching Verified 09/03/21 23:50 Sulfa (Sulfonamide Allergy Unknown Verified 09/03/21 23:50 Antibiotics) - MEDICATIONS Home Medications: Ambulatory Orders Medication Instructions Recorded Confirmed Albuterol Sulfate [Proair Hfa 2 puffs INH Q4H PRN 05/15/20 09/04/21 Inhaler] Aspirin [Aspirin EC] 81 mg PO DAILY 05/15/20 09/04/21 Fluticasone/Salmeterol [Advair Hfa 2 puffs INH BID 05/15/20 09/04/21 115-21 Mcg Inhaler] Loratadine [Claritin] 10 mg PO DAILY 05/15/20 09/04/21 Multivit,Calc,Mins/Folic Acid 1 tab PO DAILY 05/15/20 09/04/21 [One-A-Day Proactive 65 Plus Tb] Omeprazole 20 mg PO DAILY 05/15/20 09/04/21 Ferrous Gluconate [Fergon] 324 mg PO DAILYWM #30 tablet 05/17/20 09/04/21 Ipratropium/Albuterol [Duoneb] 3 ml INH QID #30 neb 05/17/20 09/04/21 cefUROXime axetiL [Ceftin] 250 mg PO Q12H #8 tablet 05/17/20 09/04/21 - LABS Result Diagrams: 09/05/21 15:52 09/05/21 05:00 - TIME SPENT Time Spent in Discharge (Minutes): 20
--- NOTE | 2021-09-05 19:28 | Discharge Plan ---
Discharge Plan Problem Reviewed?: Yes Disposition: Against Medical Advice Condition: Serious No Smoking: If you smoke, Please STOP! Call for help. Follow-up with: Mir Diaz MD [Primary Care Provider] -
--- NOTE | 2021-09-05 19:50 | CONSULTATION NOTE ---
Surgery Consult - Admit Date Hospital Admission Date: 09/04/21 - Consult Date Consult Date: 09/05/21 - Chief Complaint Chief Complaint: 75M with dyspnea on exertion found to have severe anemia - Home Meds/Allergies Home Medications: Patient History Medication Instructions Recorded Confirmed Albuterol Sulfate [Proair Hfa 2 puffs INH Q4H PRN 05/15/20 09/04/21 Inhaler] Aspirin [Aspirin EC] 81 mg PO DAILY 05/15/20 09/04/21 Fluticasone/Salmeterol [Advair Hfa 2 puffs INH BID 05/15/20 09/04/21 115-21 Mcg Inhaler] Loratadine [Claritin] 10 mg PO DAILY 05/15/20 09/04/21 Multivit,Calc,Mins/Folic Acid 1 tab PO DAILY 05/15/20 09/04/21 [One-A-Day Proactive 65 Plus Tb] Omeprazole 20 mg PO DAILY 05/15/20 09/04/21 Allergies/Adverse Reactions: Allergies Allergy/AdvReac Type Severity Reaction Status Date / Time Opioids - Morphine Analogues Allergy Itching Verified 09/03/21 23:50 Sulfa (Sulfonamide Allergy Unknown Verified 09/03/21 23:50 Antibiotics) - Vital Signs Vital Signs: Last Vital Signs Temp 36.8 C 09/05/21 12:42 Pulse 102 H 09/05/21 17:48 Resp 20 09/05/21 17:48 BP 142/57 H 09/05/21 14:08 Pulse Ox 99 09/05/21 11:00 Intake & Output: Intake & Output 09/02/21 09/03/21 09/04/21 09/05/21 23:59 23:59 23:59 23:59 Intake Total 3361 1500 Output Total 3075 1675 Balance 286 -175 - Lab Results Result Diagrams: 09/05/21 15:52 09/05/21 05:00 - Consultation Note Consultation Note: Ms. Davis is a 75 year old man with CHF who presented to the ED yesterday due to progressive dyspnea on exertion and weakness. He was found to have a hemoglobin of 5.0 and guaiac positive stool. He has been hemodynamically stable and after 3 units of packed red blood cells, his hemoglobin is now 9.2. General surgery was consulted for possible endoscopy. The patient says he has had intermittent dark stools for the past year, and some narrowing of the stool caliber, but has not had this worked up. He has had at least 3 colonoscopies in the past with multiple polyps, but his last colonoscopy was about 7 years ago and he was told he should have a repeat scope in 10 years. He does not take anticoagulation. He has a surgical history of laparoscophic cholecystectomy and remote childhood appendectomy. He denies a family history of colon cancer, but his father and a few other family members have had esophageal cancer. The patient has GERD which is controlled with Prilosec. Exam: GENERAL: Elderly man in no acute distress HEENT: Nasal cannula in place, normocephalic, atraumatic CARDIAC: Regular rate and rhythm RESPIRATORY: Satting well on nasal cannula ABDOMINAL: Soft, obese, non distended, non tender. Faint laparoscopic port scars. RECTAL: No external lesions. Normal brown non-bloody stool on digital rectal exam, with no masses noted. EXTREMITIES: Normal tone and range of motion NEUROLOGIC: Alert and oriented x3, no focal deficits. Assessment/Plan: 75 year old man with severe anemia, likely chronic. Hemodynamically stable and responded appropriately to blood transfusion. Patient understands that he needs upper and lower endoscopy, but has decided to go home and return for follow up in clinic to get this scheduled. This is reasonable, and he understands indications for return to the ER including bloody emesis and dark or bloody stools. He should follow up in general surgery clinic for endoscopy scheduling. Vimal Perez MD General Surgery
[2021-09-05] MEDS ORDERED: PANTOPRAZOLE 40 MG VIAL IVP SCH (21:00)
== END 2021-09-05 20:27 | disposition left against medical advice (07) | DRG 292 ==
LOC: EDUNIT# → ED 23:46 → SUPCPDRO 23:46 → MS3 09-04 01:45
PROVIDERS: ADMIT Internal Medicine; ATTEND Internal Medicine
PROC: 30233N1 Transfusion of Nonautologous Red Blood Cells into Peripheral Vein, Percutaneous Approach (ICD-10-PCS; principal; 2021-09-04)
DX: J44.1 Chronic obstructive pulmonary disease with (acute) exacerbation (principal); F41.0 Panic disorder [episodic paroxysmal anxiety]; D64.9 Anemia, unspecified; I10 Essential (primary) hypertension; E11.9 Type 2 diabetes mellitus without complications; F17.210 Nicotine dependence, cigarettes, uncomplicated; R60.0 Localized edema; Z20.822 Contact with and (suspected) exposure to COVID-19; I13.0 Hypertensive heart and chronic kidney disease with heart failure and stage 1 through stage 4 chronic kidney disease, or unspecified chronic kidney disease; I50.30 Unspecified diastolic (congestive) heart failure; J96.11 Chronic respiratory failure with hypoxia; K92.2 Gastrointestinal hemorrhage, unspecified; Q21.1 Atrial septal defect; E11.22 Type 2 diabetes mellitus with diabetic chronic kidney disease; E66.9 Obesity, unspecified; J44.9 Chronic obstructive pulmonary disease, unspecified; D50.0 Iron deficiency anemia secondary to blood loss (chronic); D63.8 Anemia in other chronic diseases classified elsewhere; I35.0 Nonrheumatic aortic (valve) stenosis; N18.31 Chronic kidney disease, stage 3a; K21.9 Gastro-esophageal reflux disease without esophagitis; Z66 Do not resuscitate; Z68.35 Body mass index [BMI] 35.0-35.9, adult; Z79.51 Long term (current) use of inhaled steroids; Z79.82 Long term (current) use of aspirin; Z79.899 Other long term (current) drug therapy; Z82.49 Family history of ischemic heart disease and other diseases of the circulatory system
CPT/HCPCS: 36415; 71045; 80048; 80053; 82272; 82728; 83540; 83690; 83880; 84466; 85014; 85018; 85025; 85027; 86850; 86900; 86901; 86920; 87631; 93005; 93306; 93970; 94640; 96374; 99285; A9270; J1650; J7626; P9016; 0202U

== ENCOUNTER 2023-02-18 08:16 | Outpatient (CLI) | payer MEDICARE, OTHER | END 2023-02-18 08:17 | disposition E | LOC: EMS 08:16 ==